=== PATIENT | male | born 1975 | race Caucasian/White ===

== ENCOUNTER 2017-01-10 12:59 | Emergency (ER) | payer OTHER ==
[2017-01-10 13:07] VITALS: TEMP 98.5; BMI 25.0
[2017-01-10] MEDS ORDERED: SODIUM CHLORIDE 1,000 ML IV STA (13:55)
[2017-01-10] MEDS ORDERED: diazePAM CARPU-JECT 10 MG/2 ML DISP.SYRIN IVPUSH ONE (13:58)
--- NOTE | 2017-01-10 14:03 | PDOC ---
History of Present Illness - General History Source: Patient - History of Present Illness Timing/Duration: other Severity: mild Associated Symptoms: reports: nausea/vomiting. denies: chest pain, cough, diaphoresis, fever/chills, headaches, seizure, shortness of breath, syncope, weakness <Tenisha Dykes - Last Filed: 01/10/17 15:17> <Alejandro Marcelo - Last Filed: 01/14/17 07:28> - General Chief Complaint: Tremors Stated Complaint: PCP SENT FOR ADMIN Time Seen by Provider: 01/10/17 13:50 Past History - Past Medical History Anemia: No Asthma: No Cardiac Disorders: No CVA: No COPD: No Diabetes: No GI Disorders: No Disorders: No HTN: Yes (ON MEDS) Hypercholesterolemia: No Kidney Stones: No Suicide Attempt (Hx): No (DENIES) Seizures: No Thyroid Disease: No - Surgical History Abdominal Surgery: No Appendectomy: Yes (at age 13) Cardiac Surgery: No Cholecystectomy: No Lung Surgery: No Neurologic Surgery: No Orthopedic Surgery: No - Reproductive History Testicular Surgery: No - Psycho/Social/Smoking Cessation Hx Anxiety: No Suicidal Ideation: No Smoking History: Current every day smoker Have you smoked in the past 12 months: Yes Number of Cigarettes Smoked Daily: 18 Information on smoking cessation initiated: No 'Breaking Loose' booklet given: 03/25/16 Hx Alcohol Use: Yes Drug/Substance Use Hx: Yes (COCAINE) Substance Use Type: Alcohol Hx Substance Use Treatment: No ([facility]) <Tenisha Dykes - Last Filed: 01/10/17 15:17> <Alejandro Marcelo - Last Filed: 01/14/17 07:28> - Past Medical History Allergies/Adverse Reactions: Allergies Allergy/AdvReac Type Severity Reaction Status Date / Time No Known Allergies Allergy Verified 01/10/17 13:04 Home Medications: Ambulatory Orders Amlodipine Besylate [Norvasc -] 10 mg PO DAILY 01/10/17 Losartan Potassium [Cozaar -] 100 mg PO DAILY 01/10/17 Review of Systems - Review of Systems Constitutional: No: Fever Respiratory: No: Cough, Shortness of Breath Cardiac (ROS): No: Chest Pain, Lightheadedness, Palpitations ABD/GI: Yes: Nausea. No: Vomiting Neurological: No: Headache, Dizziness <Tenisha Dykes - Last Filed: 01/10/17 15:17> *Physical Exam - Vital Signs Last Vital Signs Temp Pulse Resp BP Pulse Ox 98.5 F 117 H 18 116/60 98 01/10/17 13:04 01/10/17 13:04 01/10/17 13:04 01/10/17 13:04 01/10/17 13:04 - Physical Exam General Appearance: Yes: Appropriately Dressed. No: Apparent Distress HEENT: positive: Normal Voice Neck: positive: Supple Respiratory/Chest: positive: Lungs Clear, Normal Breath Sounds. negative: Respiratory Distress Cardiovascular: positive: S1, S2, Tachycardia Gastrointestinal/Abdominal: positive: Soft. negative: Tender Integumentary: positive: Dry, Warm Neurologic: positive: Fully Oriented, Alert, Normal Mood/Affect, Other (L hand tremor noted) <Tenisha Dykes - Last Filed: 01/10/17 15:17> - Vital Signs Last Vital Signs Temp Pulse Resp BP Pulse Ox 98.5 F 96 H 16 140/88 99 01/10/17 13:04 01/10/17 15:27 01/10/17 15:27 01/10/17 15:27 01/10/17 15:27 <Alejandro Marcelo - Last Filed: 01/14/17 07:28> ED Treatment Course - LABORATORY CBC & Chemistry Diagram: 01/10/17 14:20 01/10/17 14:20 <Tenisha Dykes - Last Filed: 01/10/17 15:17> - LABORATORY CBC & Chemistry Diagram: 01/10/17 14:20 01/10/17 14:20 - ADDITIONAL ORDERS Additional order review: 01/10/17 14:20 RBC 4.70 MCV 95.0 MCHC 34.9 RDW 12.5 MPV 7.5 Neutrophils % 71.0 Lymphocytes % 14.4 Monocytes % 13.4 H Eosinophils % 0.5 Basophils % 0.7 - Medications Given in the ED: ED Medications Discontinued Medications Generic Name Dose Route Start Last Admin Trade Name Freq PRN Reason Stop Dose Admin Diazepam 10 mg 01/10/17 13:58 01/10/17 14:21 Valium Injection - IVPUSH 01/10/17 13:59 10 mg ONCE ONE Administration Sodium Chloride 1,000 mls @ 1,000 mls/hr 01/10/17 13:55 01/10/17 14:21 Normal Saline - IV 01/10/17 14:54 1,000 mls/hr ASDIR STA Administration <Alejandro Marcelo - Last Filed: 01/14/17 07:28> Medical Decision Making - Medical Decision Making 01/10/17 14:01 41 yo M, h/o HTN, cocaine and ETOH abuse, s/p admission to [facility] detox [facility] 03/26, here requesting detox for ETOH. Last ingested ETOH 3 days ago and states he has not used cocaine in months. C/o nausea and L hand tremor, no vomiting, dizziness, seizures, CP, SOB, abd pain, f/c. No SI/HI See exam ETOH withdrawal Tachy in ED and c/o nausea and L hand tremor -valium -IVF -labs -admission to intpt vs transfer to inpt detox facility at [facility] 01/10/17 14:24 01/10/17 14:26 01/10/17 15:10 Utox + for marijuana. ETOH lvl <5. Rest of labs unremarkable. Valium and IVF in progress, will reassess 01/10/17 15:10 Case d/w staff at [facility], states once pt stable, can be transferred to facility 01/10/17 15:17 HR 96. Pt reports feeling better. Stable for discharge to [facility] w/ security assistant 01/10/17 15:18 <Tenisha Dykes - Last Filed: 01/10/17 15:17> - Medical Decision Making 01/14/17 07:28 The patient was seen and evaluated in conjunction with AJYRO Dykes under my direct supervision, ancillary studies were reviewed. I agree with the plan as outlined by JAYRO Dykes . <Alejandro Marcelo - Last Filed: 01/14/17 07:28> *DC/Admit/Observation/Transfer <Tenisha Dykes - Last Filed: 01/10/17 15:17> <Alejandro Marcelo - Last Filed: 01/14/17 07:28> Diagnosis at time of Disposition: Alcohol dependence with uncomplicated withdrawal - Discharge Dispostion Disposition: HOME Condition at time of disposition: Improved - Referrals Referrals: Steven Cordoba MD [Primary Care Provider] - - Patient Instructions Printed Discharge Instructions: DI for Alcohol Abuse Additional Instructions: You were discharged and transported to [facility]
[2017-01-10] MEDS ORDERED: diazePAM CARPU-JECT 10 MG/2 ML DISP.SYRIN ONE (14:13)
[2017-01-10 14:19] LABS: URINE APPEARANCE CLEAR; URINE BILIRUBIN NEGATIVE (NEGATIVE); URINE BLOOD NEGATIVE (NEGATIVE); URINE COLOR YELLOW; URINE GLUCOSE (UA) NEGATIVE (NEGATIVE); URINE KETONE TRACE (NEGATIVE); URINE LEUK ESTERASE NEGATIVE (NEGATIVE); URINE NITRITE NEGATIVE (NEGATIVE); URINE PROTEIN NEGATIVE (NEGATIVE); URINE UROBILINOGEN NEGATIVE mg/dL (0.2-1.0)
[2017-01-10 14:27] LABS: BASOPHIL 0.7 % (0-2.0); EOSINOPHIL 0.5 % (0-4.5); MCH 33.2 pg (25.7-33.7); MCHC 34.9 g/dl (32.0-35.9); MEAN PLT VOLUME 7.5 fl (7.5-11.1); PLATELET COUNT 238 K/MM3 (134-434); RDW 12.5 % (11.9-15.9); WHITE BLOOD COUNT 6.4 K/mm3 (4.0-10.0)
[2017-01-10 14:53] LABS: ALBUMIN 4.2 g/dl (3.4-5.0); ANION GAP 9 (8-16); BILIRUBIN,TOTAL 0.8 mg/dL (0.2-1.0); CALCIUM 9.2 mg/dL (8.5-10.1); CO2 26 mmol/L (21-32); CREATININE 0.9 mg/dL (0.7-1.3); GLUCOSE,RANDOM 155 mg/dL (74-106); SGOT/AST 18 U/L (15-37); SGPT/ALT 24 U/L (12-78); TOT PROT 7.5 g/dl (6.4-8.2)
[2017-01-10 14:56] LABS: ALK PHOS 96 U/L (45-117); CPK 77 IU/L (39-308); TROPONIN I < 0.02 ng/ml (0.00-0.05)
[2017-01-10 14:59] LABS: URINE MARIJUANA THC POSITIVE ng/ml (CUTOFF=50)
[2017-01-10 15:27] VITALS: BP 140/88; PULSE 96
--- NOTE | 2017-01-11 13:51 | EKG ---
Test Reason : Blood Pressure : / mmHG Vent. Rate : 099 BPM Atrial Rate : 099 BPM P-R Int : 148 ms QRS Dur : 078 ms QT Int : 340 ms P-R-T Axes : 054 030 042 degrees QTc Int : 436 ms NORMAL SINUS RHYTHM POSSIBLE LEFT ATRIAL ENLARGEMENT NONDIAGNOSTIC Q WAVES IN II III aVF POOR R WAVE PROGRESSION I V1-V3,MAY BE DUE TO TECHNICA LANR/OR POSITIONAL REASONS, CANNOT EXCLUDE ANTEROSEPTAL WY ABNORMAL ECG NO PREVIOUS ECGS AVAILABLE CLINICAL CORRELATION AND REPEAT EKG INDICATED Confirmed by JOSH MENEZES MD ([id number]) on 01/11/2017 1:50:52 PM Referred By: Confirmed By:JOSH MENEZES MD
== END 2017-01-10 15:28 | disposition home or self-care (01) ==
LOC: JER 12:59
PROC: 3E033NZ Introduction of Analgesics, Hypnotics, Sedatives into Peripheral Vein, Percutaneous Approach (ICD-10-PCS; principal; 2017-01-10)
DX: F10.230 Alcohol dependence with withdrawal, uncomplicated (principal); F17.210 Nicotine dependence, cigarettes, uncomplicated
CPT/HCPCS: 36415; 80053; 80307; 81003; 83690; 84484; 85025; 93005; 93010; 99283-25

== ENCOUNTER 2017-01-10 16:08 | Inpatient (IN) | payer OTHER ==
[2017-01-10 16:50] VITALS: BMI 39.1
--- NOTE | 2017-01-10 19:36 | HP ---
CIWA Score - CIWA Score Nausea/Vomitin Muscle Tremors: 3 Anxiety: 3 Agitation: 2 Paroxysmal Sweats: 1-Minimal Palms Moist Orientation: 0-Oriented Tacttile Disturbances: 2-Mild Itch/Numbness/Burn Auditory Disturbances: 2-Mild Harshness/Frighten Visual Disturbances: 2-Mild Sensitivity Headache: 2-Mild CIWA-Ar Total Score: 20 Admission ROS BHS - HPI Chief Complaint: refer from [facility] for detox from alcohol Allergies/Adverse Reactions: Allergies Allergy/AdvReac Type Severity Reaction Status Date / Time No Known Allergies Allergy Verified 01/10/17 13:04 History of Present Illness: this 41 years old male with alcohol and marijuana dependence,refer for alcohol detox,last detox from 03/25/16 to 03/28/16 [facility] alcohol related seizure admitted in [facility] on 01/01/17 history of hypertension nicotine dependence no significant period of sobriety Exam Limitations: No Limitations - Ebola screening Have you traveled outside of the country in the last 21 days: No Have you had contact with anyone from an Ebola affected area: No Have you been sick,other than usual withdrawal symptoms: No Do you have a fever: No - Review of Systems Constitutional: Loss of Appetite, Malaise, Night Sweats, Changes in sleep, Weakness EENT: reports: Nose Congestion Respiratory: reports: No Symptoms reported Cardiac: reports: No Symptoms Reported GI: reports: Nausea, Poor Appetite, Vomiting : reports: No Symptoms Reported Musculoskeletal: reports: Back Pain, Muscle Pain Integumentary: reports: Dryness Neuro: reports: Headache, Tremors Endocrine: reports: No Symptoms Reported Hematology: reports: No Symptoms Reported Psychiatric: reports: No Sypmtoms Reported Other Systems: Reviewed and Negative Patient History - Patient Medical History Hx Anemia: No Hx Asthma: No Hx Chronic Obstructive Pulmonary Disease (COPD): No Hx Cardiac Disorders: No Hx Hypertension: Yes (ON MEDS) Hx Hypercholesterolemia: No HX Cerebrovascular Accident: No Hx Seizures: Yes (alcohol related seizure last 01/01/17) Hx Dementia: No Hx Diabetes: No Hx Gastrointestinal Disorders: No Hx Genitourinary Disorders: No Hx Sexually Transmitted Disorders: No (DENIES) Hx Renal Disease (ESRD): No Hx Thyroid Disease: No Hx Human Immunodeficiency Virus (HIV): No (NEGATIVE HX last 2015) Hx Hepatitis C: No Hx Depression: No Hx Suicide Attempt: No (DENIES) Hx Bipolar Disorder: No Hx Schizophrenia: No Other Medical History: no suicidal,no homicidal - Patient Surgical History Past Surgical History: Yes Hx Neurologic Surgery: No Hx Cataract Extraction: No Hx Cardiac Surgery: No Hx Lung Surgery: No Hx Breast Surgery: No Hx Breast Biopsy: No Hx Abdominal Surgery: No Hx Appendectomy: Yes (at age 13) Hx Cholecystectomy: No Hx Genitourinary Surgery: No Hx Section: No Hx Orthopedic Surgery: No Anesthesia Reaction: No - PPD History Previous Implant?: Yes Implanted On Prior [facility] Admission?: Yes Date: 03/27/16 Results: 0 mm PPD to be Administered?: No - Smoking Cessation Smoking history: Current every day smoker Have you smoked in the past 12 months: Yes Aproximately how many cigarettes per day: 20 Cigars Per Day: 0 Hx Chewing Tobacco Use: No Initiated information on smoking cessation: Yes 'Breaking Loose' booklet given: 01/10/17 - Substance & Tx. History Hx Alcohol Use: Yes Hx Substance Use: No Substance Use Type: Alcohol Hx Substance Use Treatment: Yes ([facility] 03/25/16 to 03/28/16) - Substances Abused Alcohol Route: Oral Frequency: Daily Amount used: 6 packs of 24 ozs of beer Age of first use: 17 Date of Last Use: 01/09/17 Family Disease History - Family Disease History Family Disease History: Other: Mother (dvt leg and pulmonary embolism) Admission Physical Exam S - Vital Signs Vital Signs: Vital Signs - 24 hr 01/10/17 16:47 Temperature 97.9 F Pulse Rate 93 H Respiratory 18 Rate Blood Pressure 160/110 - Physical General Appearance: Yes: Moderate Distress, Tremorous, Irritable, Sweating, Anxious HEENTM: Yes: Normal ENT Inspection, VICTOR HUGO, Pharynx Normal Respiratory: Yes: Lungs Clear, Normal Breath Sounds, No Respiratory Distress Neck: Yes: Within Normal Limits Breast: Yes: Within Normal Limits Cardiology: Yes: Within Normal Limits, Regular Rhythm, Regular Rate, S1, S2 Abdominal: Yes: Within Normal Limits, Normal Bowel Sounds, Non Tender, Flat, Soft Genitourinary: Yes: Within Normal Limits Musculoskeletal: Yes: full range of Motion, Back pain, Muscle Pain Extremities: Yes: Tremors Neurological: Yes: presser first II-XII NML intact, Alert, Motor Strength 5/5 Integumentary: Yes: Within Normal Limits, Dry Lymphatic: Yes: Within Normal Limits - Diagnostic (1) Alcohol dependence with uncomplicated withdrawal Current Visit: No Status: Acute (2) HTN (hypertension) Current Visit: No Status: Acute Qualifiers: Hypertension type: essential hypertension Qualified Code(s): I10 - Essential (primary) hypertension (3) Nicotine dependence Current Visit: Yes Status: Acute (4) Alcohol related seizure Current Visit: Yes Status: Acute Cleared for Admission [facility] - Detox or Rehab [facility] Level of Care: Medically Managed Detox Regimen/Protocol: Librium [facility] Breath Alcohol Content Breath Alcohol Content: 0 Urine Drug Screen - Results Urine Drug Screen Results: BZO-Benzodiazepines
[2017-01-10] MEDS ORDERED: MENTHOL/PHENOL 1 EACH UD MM PRN (19:50)
[2017-01-10] MEDS ORDERED: MAGNESIUM HYDROX 2400MG/30ML ORAL SUSPENSION 30 ML CUP PO PRN (19:50)
[2017-01-10] MEDS ORDERED: IBUPROFEN 400 MG TABLET (FP) PO PRN (19:50)
[2017-01-10] MEDS ORDERED: chlordiazePOXIDE HCL 25 MG CAPSULE PO ONE (19:50)
[2017-01-10] MEDS ORDERED: chlordiazePOXIDE HCL 25 MG CAPSULE PO PRN (19:50)
[2017-01-10] MEDS ORDERED: P-EPHED 60MG/TRIPROLIDI 2.5MG TABLET PO PRN (19:50)
[2017-01-10] MEDS ORDERED: LOPERAMIDE HCL 2 MG CAPSULE PO PRN (19:50)
[2017-01-10] MEDS ORDERED: ACETAMINOPHEN 325 MG TABLET (FP) PO PRN (19:50)
[2017-01-10] MEDS ORDERED: guaiFENesin/D-METHORPHAN HB 10 ML UNIT-DOSE CUPS PO PRN (19:50)
[2017-01-10] MEDS ORDERED: MAGNESIUM CITRATE 300 ML BOTTLE PO PRN (19:50)
[2017-01-10] MEDS ORDERED: MAG HYDROX/AL HYDROX/SIMETH 30 ML UNIT-DOSE CUP PO PRN (19:50)
[2017-01-10] MEDS: diphenhydrAMINE HCL 50 MG CAPSULE PO PRN (22:45)
[2017-01-10] MEDS: chlordiazePOXIDE HCL 25 MG CAPSULE PO SCH (22:45)
[2017-01-10] MEDS: THIAMINE HCL 100 MG TABLET (FP) PO SCH (22:47)
[2017-01-10] MEDS: NICOTINE 21 MG/24 HOURS TOPICAL PATCH TD SCH (22:47)
[2017-01-11] MEDS: chlordiazePOXIDE HCL 25 MG CAPSULE PO SCH ×4 (06:02→22:36)
--- NOTE | 2017-01-11 10:22 | PN ---
S CIWA - CIWA Score Nausea/Vomitin Muscle Tremors: 4-Moderate,w/Arms Extend Anxiety: 4-Mod. Anxious/Guarded Agitation: 4-Moderately Restless Paroxysmal Sweats: 3 Orientation: 0-Oriented Tacttile Disturbances: 1-Very Mild Itch/Numbness Auditory Disturbances: 0-None Visual Disturbances: 0-None Headache: 1-Very Mild CIWA-Ar Total Score: 20 BHS Progress Note (SOAP) Subjective: nausea, sweats, interrupted sleep, anxiety, tremors Objective: 01/11/17 10:21 Vital Signs - 24 hr 01/10/17 01/10/17 01/11/17 16:47 23:20 00:30 Temperature 97.9 F 98.2 F Pulse Rate 93 H 92 H Respiratory 18 20 18 Rate Blood Pressure 160/110 146/110 01/11/17 01/11/17 03:30 06:22 Temperature 97.3 F L Pulse Rate 70 Respiratory 18 18 Rate Blood Pressure 146/90 labs pending, hypertensive and tachycardic Assessment: 01/11/17 10:22 withdrawawl sx, essentila HTN Plan: cont detox, fluids for hydration, restart bp meds, libirum prn
[2017-01-11] MEDS ORDERED: cloNIDine HCL 0.1 MG TABLET PO ONE (10:24)
[2017-01-11 10:37] LABS: MCH 32.6 pg (25.7-33.7); MCHC 33.4 g/dl (32.0-35.9); MEAN CELL VOLUME 97.4 fl (80-96); PLATELET COUNT 196 K/MM3 (134-434); RDW 12.5 % (11.9-15.9); WHITE BLOOD COUNT 4.6 K/mm3 (4.0-10.0)
[2017-01-11] MEDS: LOSARTAN POTASSIUM 50 MG TABLET (FP) PO SCH (10:51)
[2017-01-11] MEDS: amLODIPine BESYLATE 10 MG TABLET (FP) PO SCH (10:51)
[2017-01-11] MEDS: PRENATAL VITAMINS W/ FOLIC ACID TABLET (FP) PO SCH (10:51)
[2017-01-11] MEDS: NICOTINE 21 MG/24 HOURS TOPICAL PATCH TD SCH (10:51)
[2017-01-11 11:09] LABS: ALBUMIN 3.6 g/dl (3.4-5.0); ALK PHOS 79 U/L (45-117); ANION GAP 11 (8-16); BILIRUBIN,TOTAL 0.8 mg/dL (0.2-1.0); CALCIUM 8.9 mg/dL (8.5-10.1); CO2 26 mmol/L (21-32); CREATININE 0.9 mg/dL (0.7-1.3); GLUCOSE,RANDOM 80 mg/dL (74-106); SGOT/AST 17 U/L (15-37); SGPT/ALT 21 U/L (12-78); TOT PROT 6.6 g/dl (6.4-8.2)
[2017-01-11] MEDS ORDERED: chlordiazePOXIDE HCL 25 MG CAPSULE PO ONE (13:00)
--- NOTE | 2017-01-11 13:55 | EKG ---
Test Reason : Blood Pressure : / mmHG Vent. Rate : 069 BPM Atrial Rate : 069 BPM P-R Int : 134 ms QRS Dur : 090 ms QT Int : 392 ms P-R-T Axes : 017 033 017 degrees QTc Int : 420 ms NORMAL SINUS RHYTHM NORMAL ECG WHEN COMPARED WITH ECG OF 10-JAN-2017 14:06, NO SIGNIFICANT CHANGE WAS FOUND Confirmed by JOSH MENEZES MD ([id number]) on 01/11/2017 1:55:00 PM Referred By: Confirmed By:JOSH MENEZES MD
[2017-01-11] MEDS: THIAMINE HCL 100 MG TABLET (FP) PO SCH (22:36)
[2017-01-11] MEDS: diphenhydrAMINE HCL 50 MG CAPSULE PO PRN (22:37)
[2017-01-12] MEDS: chlordiazePOXIDE HCL 25 MG CAPSULE PO SCH ×3 (05:36→17:32)
[2017-01-12] MEDS: NICOTINE 21 MG/24 HOURS TOPICAL PATCH TD SCH (10:41)
[2017-01-12] MEDS: PRENATAL VITAMINS W/ FOLIC ACID TABLET (FP) PO SCH (10:41)
[2017-01-12] MEDS: amLODIPine BESYLATE 10 MG TABLET (FP) PO SCH (10:41)
[2017-01-12] MEDS: LOSARTAN POTASSIUM 50 MG TABLET (FP) PO SCH (10:41)
--- NOTE | 2017-01-12 12:12 | PN ---
S CIWA - CIWA Score Nausea/Vomitin Muscle Tremors: 4-Moderate,w/Arms Extend Anxiety: 4-Mod. Anxious/Guarded Agitation: 4-Moderately Restless Paroxysmal Sweats: 3 Orientation: 0-Oriented Tacttile Disturbances: 1-Very Mild Itch/Numbness Auditory Disturbances: 0-None Visual Disturbances: 0-None Headache: 1-Very Mild CIWA-Ar Total Score: 20 BHS Progress Note (SOAP) Subjective: nausea. sweats, interrupted sleep, anxiety, tremors Objective: 01/12/17 12:11 Vital Signs - 8 hr 01/12/17 06:36 Temperature 97 F L Pulse Rate 98 H Respiratory 20 Rate Blood Pressure 143/91 Laboratory Tests 01/11/17 01/11/17 01/11/17 07:00 07:00 07:00 WBC 4.6 RBC 4.49 Hgb 14.6 Hct 43.8 MCV 97.4 H MCH 32.6 MCHC 33.4 RDW 12.5 Plt Count 196 MPV 8.0 Sodium 141 Potassium 4.0 Chloride 104 Carbon Dioxide 26 Anion Gap 11 BUN 12 D Creatinine 0.9 Creat Clearance w eGFR > 60 Random Glucose 80 D Calcium 8.9 Total Bilirubin 0.8 AST 17 ALT 21 Alkaline Phosphatase 79 Total Protein 6.6 Albumin 3.6 RPR Titer Nonreactive u/a pending Assessment: 01/12/17 12:11 withdrawal sx Plan: cont detox, check u/a fluids
[2017-01-12 18:42] LABS: URINE APPEARANCE SLCLOUDY; URINE BILIRUBIN NEGATIVE (NEGATIVE); URINE BLOOD NEGATIVE (NEGATIVE); URINE COLOR YELLOW; URINE GLUCOSE (UA) NEGATIVE (NEGATIVE); URINE KETONE NEGATIVE (NEGATIVE); URINE LEUK ESTERASE TRACE (NEGATIVE); URINE NITRITE NEGATIVE (NEGATIVE); URINE PROTEIN NEGATIVE (NEGATIVE); URINE UROBILINOGEN NEGATIVE mg/dL (0.2-1.0)
[2017-01-12 18:47] LABS: URINE BACTERIA RARE /hpf (NONE SEEN); URINE MUCUS RARE; URINE RBC <1 /hpf (0-3); URINE WBC 2 /hpf (3-5)
[2017-01-12] MEDS: THIAMINE HCL 100 MG TABLET (FP) PO SCH (22:16)
[2017-01-12] MEDS: chlordiazePOXIDE 5 MG CAPSULE PO SCH (22:16)
[2017-01-12] MEDS: diphenhydrAMINE HCL 50 MG CAPSULE PO PRN (22:17)
[2017-01-13] MEDS: chlordiazePOXIDE 5 MG CAPSULE PO SCH ×3 (05:53→17:19)
[2017-01-13] MEDS: PRENATAL VITAMINS W/ FOLIC ACID TABLET (FP) PO SCH (10:20)
[2017-01-13] MEDS: amLODIPine BESYLATE 10 MG TABLET (FP) PO SCH (10:20)
[2017-01-13] MEDS: LOSARTAN POTASSIUM 50 MG TABLET (FP) PO SCH (10:20)
[2017-01-13] MEDS: NICOTINE 21 MG/24 HOURS TOPICAL PATCH TD SCH (10:21)
--- NOTE | 2017-01-13 11:55 | PN ---
BHS Progress Note (SOAP) Subjective: feeling fine anxiety very little sweats Objective: 01/13/17 11:55 Vital Signs Temperature 97.7 F 01/13/17 11:11 Pulse Rate 92 H 01/13/17 11:11 Respiratory Rate 20 01/13/17 11:11 Blood Pressure 145/100 01/13/17 11:11 O2 Sat by Pulse Oximetry (%) awake/alert ambulating no acute distress Assessment: 01/13/17 11:55 mild withdrawal sx Plan: continue detox increase fluids d/c in am
[2017-01-13] MEDS ORDERED: cloNIDine HCL 0.1 MG TABLET PO ONE (16:15)
[2017-01-13] MEDS: THIAMINE HCL 100 MG TABLET (FP) PO SCH (22:06)
[2017-01-13] MEDS: chlordiazePOXIDE HCL 10 MG CAPSULE PO SCH (22:06)
[2017-01-13] MEDS: diphenhydrAMINE HCL 50 MG CAPSULE PO PRN (23:18)
[2017-01-14] MEDS: chlordiazePOXIDE HCL 10 MG CAPSULE PO SCH (06:19)
[2017-01-14] MEDS: LOSARTAN POTASSIUM 50 MG TABLET (FP) PO SCH (09:18)
[2017-01-14] MEDS: PRENATAL VITAMINS W/ FOLIC ACID TABLET (FP) PO SCH (09:18)
[2017-01-14] MEDS: amLODIPine BESYLATE 10 MG TABLET (FP) PO SCH (09:18)
[2017-01-14] MEDS: NICOTINE 21 MG/24 HOURS TOPICAL PATCH TD SCH (09:19)
--- NOTE | 2017-01-14 09:25 | DS ---
[facility] Detox Discharge Summary Admission Date: 01/10/17 Discharge Date: 01/14/17 - History Present History: Alcohol Dependence Pertinent Past History: nicotine dependence, HTN, anxiety, depression, insomnia - Physical Exam Results Vital Signs: Vital Signs Temperature 97.8 F 01/14/17 05:55 Pulse Rate 66 01/14/17 05:55 Respiratory Rate 18 01/14/17 05:55 Blood Pressure 131/76 01/14/17 05:55 O2 Sat by Pulse Oximetry (%) Laboratory Tests 01/11/17 01/11/17 01/11/17 07:00 07:00 07:00 WBC 4.6 RBC 4.49 Hgb 14.6 Hct 43.8 MCV 97.4 H MCH 32.6 MCHC 33.4 RDW 12.5 Plt Count 196 MPV 8.0 Sodium 141 Potassium 4.0 Chloride 104 Carbon Dioxide 26 Anion Gap 11 BUN 12 D Creatinine 0.9 Creat Clearance w eGFR > 60 Random Glucose 80 D Calcium 8.9 Total Bilirubin 0.8 AST 17 ALT 21 Alkaline Phosphatase 79 Total Protein 6.6 Albumin 3.6 Urine Color Urine Appearance Urine pH Ur Specific Val[place] Urine Protein Urine Glucose (UA) Urine Ketones Urine Blood Urine Nitrite Urine Bilirubin Urine Urobilinogen Ur Leukocyte Esterase Urine RBC Urine WBC Ur Epithelial Cells Urine Bacteria Urine Mucus RPR Titer Nonreactive 01/12/17 14:30 WBC RBC Hgb Hct MCV MCH MCHC RDW Plt Count MPV Sodium Potassium Chloride Carbon Dioxide Anion Gap BUN Creatinine Creat Clearance w eGFR Random Glucose Calcium Total Bilirubin AST ALT Alkaline Phosphatase Total Protein Albumin Urine Color Yellow Urine Appearance Slcloudy Urine pH 6.0 Ur Specific Valdez 1.015 Urine Protein Negative Urine Glucose (UA) Negative Urine Ketones Negative Urine Blood Negative Urine Nitrite Negative Urine Bilirubin Negative Urine Urobilinogen Negative Ur Leukocyte Esterase Trace Urine RBC <1 Urine WBC 2 Ur Epithelial Cells Rare Urine Bacteria Rare Urine Mucus Rare RPR Titer Pertinent Admission Physical Exam Findings: withdrawal sx - Treatment Hospital Course: Detox Protocol Followed, Detoxed Safely, Responded well, Discharged Condition Good, Rehab Referral Accepted Patient has Accepted a Rehab Referral to: Yes - Medication Discharge Medications: Ambulatory Orders Amlodipine Besylate [Norvasc -] 10 mg PO DAILY 01/10/17 Losartan Potassium [Cozaar -] 100 mg PO DAILY 01/10/17 - Diagnosis (1) Alcohol related seizure Current Visit: Yes Status: Resolved (2) Nicotine dependence Current Visit: Yes Status: Chronic (3) Alcohol dependence with uncomplicated withdrawal Current Visit: Yes Status: Acute (4) HTN (hypertension) Current Visit: Yes Status: Chronic Qualifiers: Hypertension type: essential hypertension Qualified Code(s): I10 - Essential (primary) hypertension - AMA Did Patient Leave Against Medical Advice: No
[2017-01-14 10:33] VITALS: BP 142/100; PULSE 110; TEMP 97.5
== END 2017-01-14 09:48 | disposition home or self-care (01) | DRG 775 ==
LOC: YASAS 16:08 → Y6N 21:37
PROVIDERS: ADMIT Internal Medicine Addiction Medicine; ATTEND Internal Medicine
PROC: HZ2ZZZZ Detoxification Services for Substance Abuse Treatment (ICD-10-PCS; principal; 2017-01-10)
DX: F10.230 Alcohol dependence with withdrawal, uncomplicated (principal); F17.210 Nicotine dependence, cigarettes, uncomplicated; R00.0 Tachycardia, unspecified; I10 Essential (primary) hypertension; Z86.69 Personal history of other diseases of the nervous system and sense organs
CPT/HCPCS: 36415; 80053; 81003; 81015; 85027; 86593; 93005; 93010

== ENCOUNTER → 2017-01-31 | Emergency (ER) | payer OTHER ==
[~2017-01-31] MED LIST: LOSARTAN POTASSIUM 25 MG TABLET ONE; LOSARTAN POTASSIUM 50 MG TABLET (FP) PO SCH; amLODIPine BESYLATE 5 MG TABLET (FP) ONE; amLODIPine BESYLATE 5 MG TABLET (FP) PO ONE
[2017-01-31 02:18] VITALS: BMI 28.1
--- NOTE | 2017-01-31 04:52 | PDOC ---
History of Present Illness - General History Source: Patient Exam Limitations: No Limitations - History of Present Illness Initial Comments: 01/31/17 05:03 The patient is a 41 year old male, with a significant past medical history of hypertension, and alcohol abuse, who presents to the emergency department with elevated blood pressure. The patient reports he left detox at [facility] on Thursday, December 14, 2016 and recently revisited [facility] detox earlier today prior to arrival at the emergency room but could not be admitted to [facility] due to his high blood pressure and recent admission on December 14. The patient reports he is feeling anxious and has shakes s/p alcohol withdrawal. He denies any recent chest pain or shortness of breath. He denies any recent fevers, chills, headache or dizziness. Allergies: NKA PCP: Dr. Steven Cordoba <Iain Vang - Last Filed: 01/31/17 05:09> <Jessica Rebolledo - Last Filed: 02/01/17 00:12> - General Chief Complaint: Blood Pressure Problem Stated Complaint: BLOOD PRESSURE PROBLEM Time Seen by Provider: 01/31/17 04:08 Past History <Iain Vang - Last Filed: 01/31/17 05:09> - Past Medical History Anemia: No Asthma: No Cardiac Disorders: No CVA: No COPD: No Dementia: No Diabetes: No GI Disorders: No Disorders: No HTN: Yes (ON MEDS) Hypercholesterolemia: No Kidney Stones: No Seizures: Yes (alcohol related seizure last 01/01/17) Thyroid Disease: No - Surgical History Abdominal Surgery: No Appendectomy: Yes (at age 13) Cardiac Surgery: No Cholecystectomy: No Lung Surgery: No Neurologic Surgery: No Orthopedic Surgery: No - Reproductive History Testicular Surgery: No - Suicide/Smoking/Psychosocial Hx Smoking History: Current every day smoker Have you smoked in the past 12 months: Yes Number of Cigarettes Smoked Daily: 20 Cigars Per Day: 0 Information on smoking cessation initiated: No 'Breaking Loose' booklet given: 01/10/17 Hx Alcohol Use: Yes Drug/Substance Use Hx: No Substance Use Type: Alcohol Hx Substance Use Treatment: Yes ([facility] 03/25/16 to 03/28/16) <Jessica Rebolledo - Last Filed: 02/01/17 00:12> - Past Medical History Allergies/Adverse Reactions: Allergies Allergy/AdvReac Type Severity Reaction Status Date / Time No Known Allergies Allergy Verified 01/31/17 02:15 Home Medications: Ambulatory Orders Amlodipine Besylate [Norvasc -] 10 mg PO DAILY 01/10/17 Losartan Potassium [Cozaar -] 100 mg PO DAILY 01/10/17 Review of Systems - Review of Systems Comments:: 01/31/17 05:04 GENERAL/CONSTITUTIONAL: No fever or chills. No weakness. HEAD, EYES, EARS, NOSE AND THROAT: No change in vision. No ear pain or discharge. No sore throat. CARDIOVASCULAR: No chest pain or shortness of breath. RESPIRATORY: No cough, wheezing, or hemoptysis. GASTROINTESTINAL: No nausea, vomiting, diarrhea or constipation. GENITOURINARY: No dysuria, frequency, or change in urination. MUSCULOSKELETAL: No joint or muscle swelling or pain. No neck or back pain. SKIN: No rash NEUROLOGIC: No headache, vertigo, loss of consciousness, or change in strength/ sensation. ENDOCRINE: No increased thirst. No abnormal weight change. HEMATOLOGIC/LYMPHATIC: No anemia, easy bleeding, or history of blood clots. ALLERGIC/IMMUNOLOGIC: No hives or skin allergy. <Iain Vang - Last Filed: 01/31/17 05:09> *Physical Exam - Vital Signs Last Vital Signs Temp Pulse Resp BP Pulse Ox 97.7 F 92 H 18 180/129 99 01/31/17 02:10 01/31/17 02:10 01/31/17 02:10 01/31/17 02:10 01/31/17 02:10 - Physical Exam Comments: 01/31/17 05:05 GENERAL: Awake, alert, and fully oriented, in no acute distress HEAD: No signs of trauma EYES: PERRLA, EOMI, sclera anicteric, conjunctiva clear ENT: Auricles normal inspection, hearing grossly normal, nares patent, oropharynx clear without exudates. Moist mucosa NECK: Normal ROM, supple, no lymphadenopathy, JVD, or masses LUNGS: Breath sounds equal, clear to auscultation bilaterally. No wheezes, and no crackles HEART: Regular rate and rhythm, normal S1 and S2, no murmurs, rubs or gallops ABDOMEN: Soft, nontender, normoactive bowel sounds. No guarding, no rebound. No masses EXTREMITIES: Normal range of motion, no edema. No clubbing or cyanosis. No cords, erythema, or tenderness NEUROLOGICAL: Cranial nerves II through XII grossly intact. Normal speech, normal gait SKIN: Warm, Dry, normal turgor, no rashes or lesions noted. <Iain Vang - Last Filed: 01/31/17 05:09> - Vital Signs Last Vital Signs Temp Pulse Resp BP Pulse Ox 97.7 F 92 H 18 180/129 99 01/31/17 02:10 01/31/17 02:10 01/31/17 02:10 01/31/17 02:10 01/31/17 02:10 <Jessica Rebolledo - Last Filed: 02/01/17 00:12> ED Treatment Course - LABORATORY CBC & Chemistry Diagram: 01/31/17 06:36 01/31/17 06:36 <Jessica Rebolledo - Last Filed: 02/01/17 00:12> Medical Decision Making - Medical Decision Making 01/31/17 05:39 Pt is an alcoholic. He just got out of detox on the 6th of this month, and he is now drunk and his BP is elevated. He and his mom went to [facility] detox, and they refused his admission, as he was released withing the past couple weeks. Pt has HTN that was incidentally found today. Pt admits that he is noncompliant with his BP meds. Pt will be given a dose of his BP meds. 01/31/17 05:45 Pt will have basic labs and cardiac labs and EKG done. He will be signed out to the day team. Discuss with PMD Adalid, if pt requires admission. <Jessica Rebolledo - Last Filed: 02/01/17 00:12> *DC/Admit/Observation/Transfer - Attestations Scribe Attestion: 01/31/17 05:09 Documentation prepared by Iain Vang, acting as medical interpreter for Jessica Rebolledo MD. <Iain Vang - Last Filed: 01/31/17 05:09> <Jessica Rebolledo - Last Filed: 02/01/17 00:12> Diagnosis at time of Disposition: HTN (hypertension) - Discharge Dispostion Disposition: ELOPED - Referrals Referrals: Steven Cordoba MD [Primary Care Provider] -
[2017-01-31 06:41] LABS: BASOPHIL 1.1 % (0-2.0); EOSINOPHIL 0.4 % (0-4.5); MCH 33.5 pg (25.7-33.7); MCHC 34.9 g/dl (32.0-35.9); MEAN CELL VOLUME 96.2 fl (80-96); MEAN PLT VOLUME 7.2 fl (7.5-11.1); NEUTROPHILS 65.7 % (42.8-82.8); PLATELET COUNT 259 K/MM3 (134-434); RDW 12.8 % (11.9-15.9)
[2017-01-31 07:04] VITALS: TEMP 97.6
[2017-01-31 07:13] LABS: ALBUMIN 3.7 g/dl (3.4-5.0); ANION GAP 7 (8-16); BILIRUBIN,TOTAL 0.2 mg/dL (0.2-1.0); CALCIUM 7.9 mg/dL (8.5-10.1); CO2 28 mmol/L (21-32); CREATININE 0.8 mg/dL (0.7-1.3); GLUCOSE,RANDOM 97 mg/dL (74-106); SGOT/AST 14 U/L (15-37); SGPT/ALT 19 U/L (12-78); TOT PROT 6.7 g/dl (6.4-8.2)
[2017-01-31 07:15] LABS: ALK PHOS 79 U/L (45-117); CPK 120 IU/L (39-308); TROPONIN I < 0.02 ng/ml (0.00-0.05)
[2017-01-31 08:57] VITALS: BP 146/95; PULSE 89
--- NOTE | 2017-01-31 09:44 | EKG ---
Test Reason : Blood Pressure : / mmHG Vent. Rate : 077 BPM Atrial Rate : 077 BPM P-R Int : 158 ms QRS Dur : 092 ms QT Int : 392 ms P-R-T Axes : 064 047 030 degrees QTc Int : 443 ms POOR DATA QUALITY, INTERPRETATION MAY BE ADVERSELY AFFECTED NORMAL SINUS RHYTHM NORMAL ECG WHEN COMPARED WITH ECG OF 10-JAN-2017 21:18, NO SIGNIFICANT CHANGE WAS FOUND Confirmed by MD PRESTON, JAZZY ([id number]) on 01/31/2017 9:44:32 AM Referred By: Confirmed By:JAZZY JOHNSTON MD
--- NOTE | 2017-01-31 13:19 | PDOC ---
*Physical Exam - Vital Signs Last Vital Signs Temp Pulse Resp BP Pulse Ox 97.6 F 89 16 146/95 98 01/31/17 07:32 01/31/17 08:56 01/31/17 08:56 01/31/17 08:56 01/31/17 08:56 ED Treatment Course - LABORATORY CBC & Chemistry Diagram: 01/31/17 06:36 01/31/17 06:36 - ADDITIONAL ORDERS Additional order review: Laboratory Results 01/31/17 06:36 Sodium 142 Potassium 4.0 Chloride 107 Carbon Dioxide 28 Anion Gap 7 L BUN 10 Creatinine 0.8 Creat Clearance w eGFR > 60 Random Glucose 97 D Calcium 7.9 L Total Bilirubin 0.2 D AST 14 L ALT 19 Alkaline Phosphatase 79 Creatine Kinase 120 Troponin I < 0.02 Total Protein 6.7 Albumin 3.7 01/31/17 06:36 RBC 4.19 MCV 96.2 H MCHC 34.9 RDW 12.8 MPV 7.2 L Neutrophils % 65.7 Lymphocytes % 25.0 D Monocytes % 7.8 Eosinophils % 0.4 Basophils % 1.1 - Medications Given in the ED: ED Medications Discontinued Medications Generic Name Dose Route Start Last Admin Trade Name Freq PRN Reason Stop Dose Admin Amlodipine Besylate 5 mg 01/31/17 04:50 01/31/17 05:29 Norvasc - PO 01/31/17 04:51 5 mg ONCE ONE Administration Medical Decision Making - Medical Decision Making 01/31/17 13:18 41 yo male with h/o etoh abuse, hypertension not compliant with meds. here with c/o withdrawal symptoms. awaiting repeat bp and labs on my signout from dr bhat. labs unremarkable. bp improved after give home meds. pt eloped from ED while awaiting reassessment. *DC/Admit/Observation/Transfer Diagnosis at time of Disposition: HTN (hypertension) - Discharge Dispostion Disposition: ELOPED - Referrals Referrals: Steven Cordoba MD [Primary Care Provider] - - Patient Instructions - Post Discharge Activity
== END | disposition left against medical advice (07) ==
LOC: JER 02:00
DX: I10 Essential (primary) hypertension (principal); F10.10 Alcohol abuse, uncomplicated; G40.509 Epileptic seizures related to external causes, not intractable, without status epilepticus; Z91.14 Patient's other noncompliance with medication regimen
CPT/HCPCS: 36415; 80053; 84484; 85025; 93005; 93010; 99282-25

== ENCOUNTER 2017-02-03 18:01 | Emergency (ER) | payer OTHER ==
[2017-02-03 18:43] VITALS: BP 146/98; PULSE 119; TEMP 98.7; BMI 28.1
--- NOTE | 2017-02-03 20:32 | PDOC ---
History of Present Illness - General Chief Complaint: Alcohol intoxication Stated Complaint: DETOX Time Seen by Provider: 02/03/17 19:49 History Source: Patient Exam Limitations: No Limitations - History of Present Illness Initial Comments: 02/03/17 20:31 41-year-old male with a history of hypertension presents to the emergency department requesting for alcohol detox. Patient denies any nausea/vomiting, fever/chills, headaches, dizziness, lightheadedness, neck pains, back pains, chest pain, shortness of breath, abdominal pains, urinary symptoms, David numbness or tingling sensation. Patient states his last drink was approximately 12 noon today when he had a sixpack of beer. Timing/Duration: 24 hours Associated Symptoms: reports: denies symptoms Past History - Past Medical History Allergies/Adverse Reactions: Allergies Allergy/AdvReac Type Severity Reaction Status Date / Time No Known Allergies Allergy Verified 02/03/17 18:40 Home Medications: Ambulatory Orders Amlodipine Besylate [Norvasc -] 10 mg PO DAILY 01/10/17 Losartan Potassium [Cozaar -] 100 mg PO DAILY 01/10/17 Anemia: No Asthma: No Cardiac Disorders: No CVA: No COPD: No Dementia: No Diabetes: No GI Disorders: No Disorders: No HTN: Yes (ON MEDS) Hypercholesterolemia: No Kidney Stones: No Seizures: Yes (alcohol related seizure last 01/01/17) Thyroid Disease: No - Surgical History Abdominal Surgery: No Appendectomy: Yes (at age 13) Cardiac Surgery: No Cholecystectomy: No Lung Surgery: No Neurologic Surgery: No Orthopedic Surgery: No - Reproductive History Testicular Surgery: No - Immunization History Immunization Up to Date: Yes - Suicide/Smoking/Psychosocial Hx Smoking History: Current every day smoker Have you smoked in the past 12 months: Yes Number of Cigarettes Smoked Daily: 20 Cigars Per Day: 0 Information on smoking cessation initiated: No 'Breaking Loose' booklet given: 01/10/17 Hx Alcohol Use: No Drug/Substance Use Hx: No Substance Use Type: Alcohol Hx Substance Use Treatment: Yes ([facility] 03/25/16 to 03/28/16) Review of Systems - Review of Systems Able to Perform ROS?: Yes Comments:: 02/03/17 22:11 CONSTITUTIONAL: Absent: fever, chills, diaphoresis, generalized weakness, malaise, loss of appetite HEENT: Absent: rhinorrhea, nasal congestion, throat pain, throat swelling, difficulty swallowing, mouth swelling, ear pain, eye pain, visual Changes CARDIOVASCULAR: Absent: chest pain, loss of consciousness, palpitations, irregular heart rate, peripheral edema RESPIRATORY: Absent: cough, shortness of breath, dyspnea with exertion, orthopnea, wheezing, stridor, hemoptysis GASTROINTESTINAL: Absent: abdominal pain, abdominal distension, nausea, vomiting, diarrhea, constipation, melena, hematochezia GENITOURINARY: Absent: dysuria, frequency, urgency, hesitancy, hematuria, flank pain, genital pain MUSCULOSKELETAL: Absent: myalgia, arthralgia, joint swelling SKIN: Absent: rash, itching, pallor HEMATOLOGIC/IMMUNOLOGIC: Absent: easy bleeding, easy bruising, lymphadenopathy, frequent infections ENDOCRINE: Absent: unexplained weight gain, unexplained weight loss, heat intolerance, cold intolerance NEUROLOGIC: Absent: headache, focal weakness or paresthesias, dizziness, unsteady gait, seizure, mental status changes, bladder or bowel incontinence PSYCHIATRIC: Absent: anxiety, depression, suicidal or homicidal ideation, hallucinations. Is the patient limited Macedonian proficient: No *Physical Exam - Vital Signs Last Vital Signs Temp Pulse Resp BP Pulse Ox 98.7 F 119 H 15 146/98 98 02/03/17 18:40 02/03/17 18:40 02/03/17 18:40 02/03/17 18:40 02/03/17 18:40 - Physical Exam Comments: 02/03/17 22:11 GENERAL: Well developed, well nourished. Awake and alert. No acute distress. HEENT: Normocephalic, atraumatic. PERRLA, EOMI. No conjunctival pallor. Sclera are non- icteric. Moist mucous membranes. Oropharynx is clear. NECK: Supple. Full ROM. No JVD. Carotid pulses 2+ and symmetric, without bruits. No thyromegaly. No lymphadenopathy. CARDIOVASCULAR: Regular rate and rhythm. No murmurs, rubs, or gallops. Distal pulses are 2+ and symmetric. PULMONARY: No evidence of respiratory distress. Lungs clear to auscultation bilaterally. No wheezing, rales or rhonchi. ABDOMINAL: Soft. Non-tender. Non-distended. No rebound or guarding. No organomegaly. Normoactive bowel sounds. MUSCULOSKELETAL Normal range of motion at all joints. No bony deformities or tenderness. No CVA tenderness. EXTREMITIES: No cyanosis. No clubbing. No edema. No calf tenderness. SKIN: Warm and dry. Normal capillary refill. No rashes. No jaundice. NEUROLOGICAL: Alert, awake, appropriate. Cranial nerves 2-12 intact. No deficits to light touch and temperature in face, upper extremities and lower extremities. No motor deficits in the in face, upper extremities and lower extremities. Normoreflexic in the upper and lower extremities. Normal speech. Toes are down- going bilaterally. Gait is normal without ataxia. PSYCHIATRIC: Cooperative. Good eye contact. Appropriate mood and affect. ED Treatment Course - LABORATORY CBC & Chemistry Diagram: 02/04/17 00:40 *DC/Admit/Observation/Transfer Diagnosis at time of Disposition: Alcohol dependence with uncomplicated withdrawal - Discharge Dispostion Condition at time of disposition: Stable - Referrals Referrals: Steven Cordoba MD [Primary Care Provider] - - Patient Instructions Printed Discharge Instructions: DI for Alcohol Abuse Additional Instructions: Return to the ER for any concerns. You may not return back to detox because it has been less than 30 days since your discharge Progress Note - Progress Note Progress Note: 0206hrs: Spoke to Isaura DANIELSON from Detox, patient recently finished a detox program from January 14 to January 17. Therefore, he is unable to return back to the program for at least 30 days from the date of discharge. 0225hrs: Signed out to Dr. Mariee.
[2017-02-03] MEDS ORDERED: SODIUM CHLORIDE 1,000 ML IV STA (20:50)
[2017-02-04 01:25] LABS: ALBUMIN 3.3 g/dl (3.4-5.0); ANION GAP 9 (8-16); CALCIUM 7.5 mg/dL (8.5-10.1); CO2 24 mmol/L (21-32); CREATININE 0.8 mg/dL (0.7-1.3); GLUCOSE,RANDOM 72 mg/dL (74-106); SGOT/AST 22 U/L (15-37); SGPT/ALT 16 U/L (12-78)
[2017-02-04 01:27] LABS: ALK PHOS 79 U/L (45-117); BILIRUBIN,TOTAL 0.6 mg/dL (0.2-1.0); TOT PROT 6.2 g/dl (6.4-8.2)
--- NOTE | 2017-02-04 06:08 | PDOC ---
*Physical Exam - Vital Signs Last Vital Signs Temp Pulse Resp BP Pulse Ox 98.7 F 119 H 15 146/98 98 02/03/17 18:40 02/03/17 18:40 02/03/17 18:40 02/03/17 18:40 02/03/17 18:40 ED Treatment Course - LABORATORY CBC & Chemistry Diagram: 02/04/17 00:40 - ADDITIONAL ORDERS Additional order review: Laboratory Results 02/04/17 02/03/17 02/03/17 00:40 20:50 20:50 Sodium 141 Cancelled Potassium 3.8 Cancelled Chloride 108 H Cancelled Carbon Dioxide 24 Cancelled Anion Gap 9 Cancelled BUN 9 Cancelled Creatinine 0.8 Cancelled Creat Clearance w eGFR > 60 Cancelled Random Glucose 72 L D Cancelled Calcium 7.5 L Cancelled Total Bilirubin 0.6 D Cancelled AST 22 D Cancelled ALT 16 Cancelled Alkaline Phosphatase 79 Cancelled Total Protein 6.2 L Cancelled Albumin 3.3 L Cancelled Alcohol, Quantitative 254.0 H* - Medications Given in the ED: ED Medications Discontinued Medications Generic Name Dose Route Start Last Admin Trade Name Freq PRN Reason Stop Dose Admin Sodium Chloride 1,000 mls @ 1,000 mls/hr 02/03/17 20:50 02/03/17 21:25 Normal Saline - IV 02/03/17 21:49 1,000 mls/hr ASDIR STA Administration *DC/Admit/Observation/Transfer Diagnosis at time of Disposition: Alcoholic intoxication Qualifiers: Complication of substance-induced condition: uncomplicated Qualified Code(s): F10.920 - Alcohol use, unspecified with intoxication, uncomplicated - Discharge Dispostion Disposition: HOME Condition at time of disposition: Stable Admit: No - Referrals Referrals: Steven Cordoba MD [Primary Care Provider] - - Patient Instructions Printed Discharge Instructions: DI for Alcohol Abuse Additional Instructions: Return to the ER for any concerns. You may not return back to detox because it has been less than 30 days since your discharge - Post Discharge Activity
[2017-02-04] MEDS ORDERED: diazePAM 5 MG TABLET PO ONE (07:19)
[2017-02-04] MEDS ORDERED: chlordiazePOXIDE HCL 25 MG CAPSULE PO ONE (07:19)
[2017-02-04] MEDS ORDERED: chlordiazePOXIDE HCL 25 MG CAPSULE ONE (07:21)
[2017-02-04] MEDS ORDERED: diazePAM 5 MG TABLET ONE (07:21)
== END 2017-02-04 07:27 | disposition home or self-care (01) ==
LOC: JER 18:01
PROC: 3E0337Z Introduction of Electrolytic and Water Balance Substance into Peripheral Vein, Percutaneous Approach (ICD-10-PCS; principal; 2017-02-03)
DX: F10.230 Alcohol dependence with withdrawal, uncomplicated (principal); I10 Essential (primary) hypertension; G40.509 Epileptic seizures related to external causes, not intractable, without status epilepticus; F17.210 Nicotine dependence, cigarettes, uncomplicated
CPT/HCPCS: 36415; 80053; 80307; 99282-25

== ENCOUNTER 2017-02-04 08:15 | Inpatient (IN) | payer OTHER ==
[2017-02-04 09:56] VITALS: BMI 28.6
--- NOTE | 2017-02-04 15:38 | HP ---
Admission ROS [facility] - [facility] Chief Complaint: I need rehab because I'm unable to stop drinking. Allergies/Adverse Reactions: Allergies Allergy/AdvReac Type Severity Reaction Status Date / Time No Known Allergies Allergy Verified 02/04/17 13:20 History of Present Illness: 41 y/o man with a long hx. of alcoholism, recently completed detox at the beginning of the month is admitted to rehab.Pt. was at [facility] ED last night. Exam Limitations: No Limitations - Ebola screening Have you traveled outside of the country in the last 21 days: No Have you had contact with anyone from an Ebola affected area: No Have you been sick,other than usual withdrawal symptoms: No Do you have a fever: No - Review of Systems Constitutional: No Symptoms Reported EENT: reports: No Symptoms Reported Respiratory: reports: No Symptoms reported Cardiac: reports: No Symptoms Reported GI: reports: Nausea : reports: No Symptoms Reported Musculoskeletal: reports: No Symptoms Reported Integumentary: reports: No Symptoms Reported Neuro: reports: Tremors (mild) Endocrine: reports: No Symptoms Reported Hematology: reports: No Symptoms Reported Psychiatric: reports: No Sypmtoms Reported Other Systems: Reviewed and Negative Patient History - Patient Medical History Hx Anemia: No Hx Asthma: No Hx Chronic Obstructive Pulmonary Disease (COPD): No Hx Cardiac Disorders: No Hx Hypertension: Yes Hx Hypercholesterolemia: No HX Cerebrovascular Accident: No Hx Seizures: Yes (alcohol related-last episode was in 10/2016) Hx Dementia: No Hx Diabetes: No Hx Gastrointestinal Disorders: No Hx Genitourinary Disorders: No Hx Sexually Transmitted Disorders: No Hx Renal Disease (ESRD): No Hx Thyroid Disease: No Hx Human Immunodeficiency Virus (HIV): No Hx Hepatitis C: No Hx Depression: No Hx Suicide Attempt: No Hx Bipolar Disorder: No Hx Schizophrenia: No - Patient Surgical History Past Surgical History: Yes Hx Neurologic Surgery: No Hx Cataract Extraction: No Hx Cardiac Surgery: No Hx Lung Surgery: No Hx Breast Surgery: No Hx Breast Biopsy: No Hx Abdominal Surgery: No Hx Appendectomy: Yes (at age 13) Hx Cholecystectomy: No Hx Genitourinary Surgery: No Hx Section: No Hx Orthopedic Surgery: No Anesthesia Reaction: No - PPD History Previous Implant?: Yes Documented Results: Negative w/proof Implanted On Prior [facility] Admission?: Yes Date: 03/27/16 Results: 0 mm PPD to be Administered?: No - Smoking Cessation Smoking history: Current every day smoker Have you smoked in the past 12 months: Yes Aproximately how many cigarettes per day: 20 Cigars Per Day: 0 Hx Chewing Tobacco Use: No Initiated information on smoking cessation: Yes 'Breaking Loose' booklet given: 02/04/17 - Substance & Tx. History Hx Alcohol Use: Yes Hx Substance Use: No Substance Use Type: Alcohol Hx Substance Use Treatment: Yes (Detox at [facility] 01/2017) - Substances Abused Alcohol-beer Route: Oral Frequency: Daily Amount used: 3-4 (24 oz.) Age of first use: 18 Date of Last Use: 02/03/17 Family Disease History - Family Disease History Family Disease History: Other: Mother (dvt leg and pulmonary embolism) Admission Physical Exam [facility] - Vital Signs Vital Signs: Vital Signs - 24 hr 02/04/17 09:42 Temperature 96.2 F L Pulse Rate 110 H Respiratory 20 Rate Blood Pressure 165/113 - Physical General Appearance: Yes: Anxious HEENTM: Yes: Within Normal Limits Respiratory: Yes: Chest Non-Tender, Lungs Clear, Normal Breath Sounds Neck: Yes: Supple Breast: Yes: Breast Exam Deferred Cardiology: Yes: Regular Rhythm, Regular Rate, S1, S2 Abdominal: Yes: Normal Bowel Sounds, Non Tender, Soft Genitourinary: Yes: Within Normal Limits Back: Yes: Within Normal Limits Musculoskeletal: Yes: Within Normal Limits Extremities: Yes: Within Normal Limits Neurological: Yes: Fully Oriented, Alert Integumentary: Yes: Diaphoresis Lymphatic: Yes: Within Normal Limits - Diagnostic (1) HTN (hypertension) Current Visit: Yes Status: Chronic Qualifiers: Hypertension type: essential hypertension (2) Uncomplicated alcohol dependence Current Visit: Yes Status: Acute Cleared for Admission [facility] - Detox or Rehab Claeared for Rehab Admission: Yes [facility] Breath Alcohol Content Breath Alcohol Content: 0 Urine Drug Screen - Results Drug Screen Negative: No Urine Drug Screen Results: BZO-Benzodiazepines Inpatient Rehab Admission - Initial Determination Are CD services needed?: Yes Free of communicable disease: Yes Not in need of hospitalization: Yes - Rehab Admission Criteria Previous failed treatment: Yes Poor recovery environment: Yes Comorbidities: Yes Lacks judgement: Yes Patient is meeting Inpatient Rehab admission criteria:: Yes
[2017-02-04] MEDS ORDERED: ACETAMINOPHEN 325 MG TABLET (FP) PO PRN (16:01)
[2017-02-04] MEDS ORDERED: guaiFENesin/D-METHORPHAN HB 10 ML UNIT-DOSE CUPS PO PRN (16:01)
[2017-02-04] MEDS ORDERED: IBUPROFEN 400 MG TABLET (FP) PO PRN (16:01)
[2017-02-04] MEDS ORDERED: MENTHOL/PHENOL 1 EACH UD MM PRN (16:01)
[2017-02-04] MEDS ORDERED: MAGNESIUM HYDROX 2400MG/30ML ORAL SUSPENSION 30 ML CUP PO PRN (16:01)
[2017-02-04] MEDS ORDERED: P-EPHED 60MG/TRIPROLIDI 2.5MG TABLET PO PRN (16:01)
[2017-02-04] MEDS ORDERED: NICOTINE POLACRILEX 4 MG GUM BC PRN (16:01)
[2017-02-04] MEDS ORDERED: MAG HYDROX/AL HYDROX/SIMETH 30 ML UNIT-DOSE CUP PO PRN (16:01)
[2017-02-04] MEDS ORDERED: LOPERAMIDE HCL 2 MG CAPSULE PO PRN (16:01)
[2017-02-04] MEDS ORDERED: MAGNESIUM CITRATE 300 ML BOTTLE PO PRN (16:01)
[2017-02-04] MEDS ORDERED: hydrOXYzine PAMOATE 50 MG CAPSULE (FP) PO PRN (16:03)
[2017-02-04] MEDS: LOSARTAN POTASSIUM 50 MG TABLET (FP) PO SCH (18:36)
[2017-02-04] MEDS: amLODIPine BESYLATE 10 MG TABLET (FP) PO SCH (18:36)
[2017-02-04] MEDS: NICOTINE 21 MG/24 HOURS TOPICAL PATCH TD SCH (18:37)
[2017-02-04] MEDS: THIAMINE HCL 100 MG TABLET (FP) PO SCH (21:17)
[2017-02-04] MEDS: diphenhydrAMINE HCL 50 MG CAPSULE PO PRN (21:18)
[2017-02-04 22:11] LABS: URINE APPEARANCE CLEAR; URINE BILIRUBIN NEGATIVE (NEGATIVE); URINE BLOOD NEGATIVE (NEGATIVE); URINE COLOR YELLOW; URINE GLUCOSE (UA) NEGATIVE (NEGATIVE); URINE KETONE TRACE (NEGATIVE); URINE LEUK ESTERASE NEGATIVE (NEGATIVE); URINE NITRITE NEGATIVE (NEGATIVE); URINE PROTEIN NEGATIVE (NEGATIVE); URINE UROBILINOGEN NEGATIVE mg/dL (0.2-1.0)
[2017-02-05] MEDS: amLODIPine BESYLATE 10 MG TABLET (FP) PO SCH ×2 (06:38→10:15)
[2017-02-05] MEDS: LOSARTAN POTASSIUM 50 MG TABLET (FP) PO SCH ×2 (06:38→10:15)
[2017-02-05] MEDS: NICOTINE 21 MG/24 HOURS TOPICAL PATCH TD SCH (10:13)
[2017-02-05] MEDS: PRENATAL VITAMINS W/ FOLIC ACID TABLET (FP) PO SCH (10:13)
[2017-02-05] MEDS: METOPROLOL TARTRATE 25 MG TABLET (FP) PO SCH ×2 (10:15→21:30)
--- NOTE | 2017-02-05 10:45 | EKG ---
Test Reason : Blood Pressure : / mmHG Vent. Rate : 099 BPM Atrial Rate : 099 BPM P-R Int : 164 ms QRS Dur : 082 ms QT Int : 354 ms P-R-T Axes : 046 050 038 degrees QTc Int : 454 ms NORMAL SINUS RHYTHM NORMAL ECG WHEN COMPARED WITH ECG OF 31-JAN-2017 06:38, NO SIGNIFICANT CHANGE WAS FOUND Confirmed by JOANN WALKER MD ([id number]) on 02/05/2017 10:44:48 AM Referred By: Confirmed By:JOANN WALKER MD
[2017-02-05] MEDS ORDERED: cloNIDine HCL 0.1 MG TABLET PO ONE (10:59)
[2017-02-05] MEDS ORDERED: hydrOXYzine HCL 25 MG TABLET (FP) PO ONE (11:00)
--- NOTE | 2017-02-05 11:16 | HP ---
Psychiatrist Admission - Data Date of interview: 02/05/17 Admission source: [facility] Identifying data: This is the first 5N inpatient rehabilitation admission for this 41 year old single Malagasy/Japanese male, who is domiciled residing in [place] with his mother and employed at [employer]. Medical History: HTN, Appendectomy, history of alcohol withdrawal seizures x 2. Smokes cigarettes 1 PPD. Psychiatric History: Patient denies history of psychiatric treatment. Physical/Sexual Abuse/Trauma History: Patient denies history of sexual, physical and verbal abuse Additional Comment: never , parents . Vital Signs: Vital Signs - 24 hr 02/04/17 02/05/17 02/05/17 21:00 00:30 03:30 Temperature Pulse Rate 97 H Respiratory 16 16 Rate Blood Pressure 158/112 02/05/17 06:53 Temperature 98.1 F Pulse Rate 101 H Respiratory 16 Rate Blood Pressure 154/105 Allergies/Adverse Reactions: Allergies Allergy/AdvReac Type Severity Reaction Status Date / Time No Known Allergies Allergy Verified 02/04/17 13:20 Date of last physical exam: 02/04/17 Concur with the findings of this exam: Yes - Substance Abuse/Tx History Hx Alcohol Use: Yes (started at age of 18 ) Hx Substance Use: No Substance Use Type: Alcohol (daily 3-4 of 24 oz beer) Hx Substance Use Treatment: Yes ([facility]) Mental Status Exam - Mental Status Exam Alert and Oriented to: Time, Place, Person Cognitive Function: Good Patient Appearance: Well Groomed Mood: Hopeful Affect: Appropriate, Mood Congruent Patient Behavior: Appropriate, Cooperative Speech Pattern: Clear, Appropriate Voice Loudness: Normal Thought Process: Intact, Goal Oriented Thought Disorder: Not Present Hallucinations: Denies Suicidal Ideation: Denies Homicidal Ideation: Denies Insight/Judgement: Fair Sleep: Fair Appetite: Fair Muscle strength/Tone: Normal Gait/Station: Normal Psychiatric Findings - Problem List ([place] 1, 2,3) (1) HTN (hypertension) Current Visit: Yes Status: Chronic Qualifiers: Hypertension type: essential hypertension (2) Nicotine dependence Current Visit: No Status: Chronic (3) Alcohol dependence Current Visit: Yes Status: Acute - Initial Treatment Plan Initial Treatment Plan: Discussed inidcations an properties of Campral with the patient, med. was recommended patient reported he needs time to think about medications, will continue to monitor rpogress.
[2017-02-05] MEDS: THIAMINE HCL 100 MG TABLET (FP) PO SCH (21:30)
[2017-02-06] MEDS: PRENATAL VITAMINS W/ FOLIC ACID TABLET (FP) PO SCH (10:13)
[2017-02-06] MEDS: METOPROLOL TARTRATE 25 MG TABLET (FP) PO SCH ×2 (10:14→21:27)
[2017-02-06] MEDS: amLODIPine BESYLATE 10 MG TABLET (FP) PO SCH (10:14)
[2017-02-06] MEDS: LOSARTAN POTASSIUM 50 MG TABLET (FP) PO SCH (10:14)
[2017-02-06] MEDS: NICOTINE 21 MG/24 HOURS TOPICAL PATCH TD SCH (10:14)
[2017-02-06] MEDS: THIAMINE HCL 100 MG TABLET (FP) PO SCH (21:27)
[2017-02-07] MEDS: PRENATAL VITAMINS W/ FOLIC ACID TABLET (FP) PO SCH (10:05)
[2017-02-07] MEDS: LOSARTAN POTASSIUM 50 MG TABLET (FP) PO SCH (10:05)
[2017-02-07] MEDS: amLODIPine BESYLATE 10 MG TABLET (FP) PO SCH (10:05)
[2017-02-07] MEDS: METOPROLOL TARTRATE 25 MG TABLET (FP) PO SCH ×2 (10:05→21:22)
[2017-02-07] MEDS: NICOTINE 21 MG/24 HOURS TOPICAL PATCH TD SCH (10:05)
[2017-02-07] MEDS: diphenhydrAMINE HCL 50 MG CAPSULE PO PRN (21:22)
[2017-02-07] MEDS: THIAMINE HCL 100 MG TABLET (FP) PO SCH (21:22)
[2017-02-08] MEDS: LOSARTAN POTASSIUM 50 MG TABLET (FP) PO SCH (10:05)
[2017-02-08] MEDS: amLODIPine BESYLATE 10 MG TABLET (FP) PO SCH (10:05)
[2017-02-08] MEDS: METOPROLOL TARTRATE 25 MG TABLET (FP) PO SCH ×2 (10:05→21:18)
[2017-02-08] MEDS: NICOTINE 21 MG/24 HOURS TOPICAL PATCH TD SCH (10:05)
[2017-02-08] MEDS: PRENATAL VITAMINS W/ FOLIC ACID TABLET (FP) PO SCH (10:05)
[2017-02-08] MEDS: THIAMINE HCL 100 MG TABLET (FP) PO SCH (21:18)
[2017-02-08] MEDS: diphenhydrAMINE HCL 50 MG CAPSULE PO PRN (21:19)
[2017-02-09] MEDS: amLODIPine BESYLATE 10 MG TABLET (FP) PO SCH (09:58)
[2017-02-09] MEDS: PRENATAL VITAMINS W/ FOLIC ACID TABLET (FP) PO SCH (09:58)
[2017-02-09] MEDS: METOPROLOL TARTRATE 25 MG TABLET (FP) PO SCH ×2 (09:58→21:26)
[2017-02-09] MEDS: LOSARTAN POTASSIUM 50 MG TABLET (FP) PO SCH (09:58)
[2017-02-09] MEDS: NICOTINE 21 MG/24 HOURS TOPICAL PATCH TD SCH (09:59)
[2017-02-09] MEDS: THIAMINE HCL 100 MG TABLET (FP) PO SCH (21:26)
[2017-02-09] MEDS: diphenhydrAMINE HCL 50 MG CAPSULE PO PRN (21:27)
[2017-02-10] MEDS: amLODIPine BESYLATE 10 MG TABLET (FP) PO SCH (10:02)
[2017-02-10] MEDS: METOPROLOL TARTRATE 25 MG TABLET (FP) PO SCH ×2 (10:02→21:18)
[2017-02-10] MEDS: LOSARTAN POTASSIUM 50 MG TABLET (FP) PO SCH (10:02)
[2017-02-10] MEDS: NICOTINE 21 MG/24 HOURS TOPICAL PATCH TD SCH (10:02)
[2017-02-10] MEDS: PRENATAL VITAMINS W/ FOLIC ACID TABLET (FP) PO SCH (10:02)
[2017-02-10] MEDS: THIAMINE HCL 100 MG TABLET (FP) PO SCH (21:18)
[2017-02-10] MEDS: diphenhydrAMINE HCL 50 MG CAPSULE PO PRN (21:18)
[2017-02-11] MEDS: METOPROLOL TARTRATE 25 MG TABLET (FP) PO SCH ×2 (09:52→21:18)
[2017-02-11] MEDS: LOSARTAN POTASSIUM 50 MG TABLET (FP) PO SCH (09:52)
[2017-02-11] MEDS: amLODIPine BESYLATE 10 MG TABLET (FP) PO SCH (09:52)
[2017-02-11] MEDS: PRENATAL VITAMINS W/ FOLIC ACID TABLET (FP) PO SCH (09:52)
[2017-02-11] MEDS: NICOTINE 21 MG/24 HOURS TOPICAL PATCH TD SCH (09:53)
[2017-02-11] MEDS: THIAMINE HCL 100 MG TABLET (FP) PO SCH (21:18)
[2017-02-11] MEDS: diphenhydrAMINE HCL 50 MG CAPSULE PO PRN (21:18)
[2017-02-12] MEDS: NICOTINE 21 MG/24 HOURS TOPICAL PATCH TD SCH (09:40)
[2017-02-12] MEDS: PRENATAL VITAMINS W/ FOLIC ACID TABLET (FP) PO SCH (09:40)
[2017-02-12] MEDS: METOPROLOL TARTRATE 25 MG TABLET (FP) PO SCH ×2 (09:40→21:30)
[2017-02-12] MEDS: amLODIPine BESYLATE 10 MG TABLET (FP) PO SCH (09:40)
[2017-02-12] MEDS: LOSARTAN POTASSIUM 50 MG TABLET (FP) PO SCH (09:40)
[2017-02-12] MEDS: THIAMINE HCL 100 MG TABLET (FP) PO SCH (21:30)
[2017-02-12] MEDS: diphenhydrAMINE HCL 50 MG CAPSULE PO PRN (21:41)
[2017-02-13] MEDS: METOPROLOL TARTRATE 25 MG TABLET (FP) PO SCH ×2 (10:00→21:20)
[2017-02-13] MEDS: NICOTINE 21 MG/24 HOURS TOPICAL PATCH TD SCH (10:00)
[2017-02-13] MEDS: amLODIPine BESYLATE 10 MG TABLET (FP) PO SCH (10:00)
[2017-02-13] MEDS: LOSARTAN POTASSIUM 50 MG TABLET (FP) PO SCH (10:00)
[2017-02-13] MEDS: PRENATAL VITAMINS W/ FOLIC ACID TABLET (FP) PO SCH (10:00)
[2017-02-13] MEDS: THIAMINE HCL 100 MG TABLET (FP) PO SCH (21:20)
[2017-02-13] MEDS: diphenhydrAMINE HCL 50 MG CAPSULE PO PRN (21:20)
[2017-02-14] MEDS: LOSARTAN POTASSIUM 50 MG TABLET (FP) PO SCH (10:00)
[2017-02-14] MEDS: PRENATAL VITAMINS W/ FOLIC ACID TABLET (FP) PO SCH (10:00)
[2017-02-14] MEDS: METOPROLOL TARTRATE 25 MG TABLET (FP) PO SCH ×2 (10:00→21:14)
[2017-02-14] MEDS: amLODIPine BESYLATE 10 MG TABLET (FP) PO SCH (10:00)
[2017-02-14] MEDS: NICOTINE 21 MG/24 HOURS TOPICAL PATCH TD SCH (10:01)
[2017-02-14] MEDS: THIAMINE HCL 100 MG TABLET (FP) PO SCH (21:14)
[2017-02-14] MEDS: diphenhydrAMINE HCL 50 MG CAPSULE PO PRN (21:14)
[2017-02-15] MEDS: NICOTINE 21 MG/24 HOURS TOPICAL PATCH TD SCH (10:03)
[2017-02-15] MEDS: PRENATAL VITAMINS W/ FOLIC ACID TABLET (FP) PO SCH (10:03)
[2017-02-15] MEDS: METOPROLOL TARTRATE 25 MG TABLET (FP) PO SCH ×2 (10:03→21:22)
[2017-02-15] MEDS: amLODIPine BESYLATE 10 MG TABLET (FP) PO SCH (10:03)
[2017-02-15] MEDS: LOSARTAN POTASSIUM 50 MG TABLET (FP) PO SCH (10:03)
[2017-02-15] MEDS: THIAMINE HCL 100 MG TABLET (FP) PO SCH (21:22)
[2017-02-15] MEDS: diphenhydrAMINE HCL 50 MG CAPSULE PO PRN (21:23)
[2017-02-16] MEDS: METOPROLOL TARTRATE 25 MG TABLET (FP) PO SCH ×2 (09:57→21:08)
[2017-02-16] MEDS: LOSARTAN POTASSIUM 50 MG TABLET (FP) PO SCH (09:57)
[2017-02-16] MEDS: amLODIPine BESYLATE 10 MG TABLET (FP) PO SCH (09:58)
[2017-02-16] MEDS: PRENATAL VITAMINS W/ FOLIC ACID TABLET (FP) PO SCH (09:58)
[2017-02-16] MEDS: NICOTINE 21 MG/24 HOURS TOPICAL PATCH TD SCH (09:58)
[2017-02-16] MEDS: THIAMINE HCL 100 MG TABLET (FP) PO SCH (21:08)
[2017-02-16] MEDS: diphenhydrAMINE HCL 50 MG CAPSULE PO PRN (21:09)
[2017-02-17 06:42] VITALS: TEMP 97.4
[2017-02-17] MEDS: LOSARTAN POTASSIUM 50 MG TABLET (FP) PO SCH (10:18)
[2017-02-17] MEDS: amLODIPine BESYLATE 10 MG TABLET (FP) PO SCH (10:18)
[2017-02-17] MEDS: PRENATAL VITAMINS W/ FOLIC ACID TABLET (FP) PO SCH (10:18)
[2017-02-17] MEDS: METOPROLOL TARTRATE 25 MG TABLET (FP) PO SCH ×2 (10:18→21:14)
[2017-02-17] MEDS: NICOTINE 21 MG/24 HOURS TOPICAL PATCH TD SCH (10:19)
--- NOTE | 2017-02-17 12:20 | PN ---
Psychiatric Progress Note Vital Signs: Vital Signs Period Temp Pulse Resp BP Sys/Caceres Pulse Ox Last 24 Hr 97.4 F 83-90 16-18 117-134/68-82 Date of Session: 02/17/17 Chief Complaint:: discharge visit HPI: Patient is addressing alcoohl, nicotine dependence. ROS: HTN medically managed. Current Medications: Active Medications Generic Name Dose Route Start Last Admin Trade Name Freq PRN Reason Stop Dose Admin Acetaminophen 650 mg 02/04/17 16:01 Tylenol - PO Q4H PRN PAIN Al Hydroxide/Mg Hydroxide 30 ml 02/04/17 16:01 Mylanta Oral Suspension - PO Q6H PRN DYSPEPSIA Amlodipine Besylate 10 mg 02/04/17 17:15 02/17/17 10:18 Norvasc - PO 10 mg DAILY MARIEL Administration Diphenhydramine HCl 50 mg 02/04/17 16:01 02/16/17 21:09 Benadryl - PO 50 mg HSMR1 PRN Administration INSOMNIA Eucalyptus/Menthol/Phenol/Sorbitol 1 each 02/04/17 16:01 Cepastat Lozenge - MM Q4H PRN SORE THROAT Guaifenesin 10 ml 02/04/17 16:01 Robitussin Dm - PO Q6H PRN COUGH Hydroxyzine Pamoate 50 mg 02/04/17 16:03 Vistaril - PO Q4H PRN FOR ITCHING Loperamide HCl 4 mg 02/04/17 16:01 Imodium - PO Q6H PRN DIARRHEA Losartan Potassium 100 mg 02/04/17 17:15 02/17/17 10:18 Cozaar - PO 100 mg DAILY MARIEL Administration Magnesium Citrate 300 ml 02/04/17 16:01 Citroma - PO Q48H PRN CONSTIPATION Magnesium Hydroxide 30 ml 02/04/17 16:01 Milk Of Magnesia - PO DAILY PRN CONSTIPATION Metoprolol Tartrate 25 mg 02/05/17 10:00 02/17/17 10:18 Lopressor - PO 25 mg BID MARIEL Administration Nicotine 21 mg 02/04/17 17:15 02/17/17 10:19 Nicoderm Patch - TD 21 mg DAILY MARIEL Administration Nicotine Polacrilex 4 mg 02/04/17 16:01 Nicorette Gum - BC Q2H PRN NICOTINE REPLACEMENT RX Multivit/Folic Acid/Iron 1 tab 02/05/17 10:00 02/17/17 10:18 Vitamins (Sjr) - PO 1 tab DAILY MARIEL Administration Thiamine HCl 100 mg 02/04/17 22:00 02/16/17 21:08 Vitamin B1 - PO 100 mg HS MARIEL Administration Current Side Effect: No Lab tests ordered: No Lab tests reviewed: Yes Provider note:: Patient will complete his treatment on 02/18/17 and meet his goals, will continue to address his issues at the next level oif care. He verbalized understanding of the negative consequenses of his addiction and importance of changing behavior for the utilizations of supports to prevent relapses, patient was encouraged to continue maintain abstinece. Patient is stable for discharge on 02/18/17. Total face to face time:: 30 Mental Status Exam - Mental Status Exam Alert and Oriented to: Time, Place, Person Cognitive Function: Fair Patient Appearance: Well Groomed Mood: Hopeful Affect: Appropriate, Mood Congruent Patient Behavior: Appropriate, Cooperative Speech Pattern: Clear, Appropriate Voice Loudness: Normal Thought Process: Intact, Goal Oriented Thought Disorder: Not Present Hallucinations: Denies Suicidal Ideation: Denies Homicidal Ideation: Denies Insight/Judgement: Fair Sleep: Fair Appetite: Good Muscle strength/Tone: Normal Gait/Station: Normal Psychiatric Treatment Plan - Problem List (1) HTN (hypertension) Current Visit: Yes Qualifiers: Hypertension type: essential hypertension Qualified Code(s): I10 - Essential (primary) hypertension; I10 - Essential (primary) hypertension; I10 - Essential (primary) hypertension (2) Nicotine dependence Current Visit: No (3) Alcohol dependence Current Visit: Yes
[2017-02-17] MEDS: THIAMINE HCL 100 MG TABLET (FP) PO SCH (21:15)
[2017-02-17] MEDS: diphenhydrAMINE HCL 50 MG CAPSULE PO PRN (21:15)
[2017-02-18] MEDS: PRENATAL VITAMINS W/ FOLIC ACID TABLET (FP) PO SCH (10:05)
[2017-02-18] MEDS: NICOTINE 21 MG/24 HOURS TOPICAL PATCH TD SCH (10:06)
[2017-02-18] MEDS: amLODIPine BESYLATE 10 MG TABLET (FP) PO SCH (10:06)
[2017-02-18] MEDS: LOSARTAN POTASSIUM 50 MG TABLET (FP) PO SCH (10:06)
[2017-02-18] MEDS: METOPROLOL TARTRATE 25 MG TABLET (FP) PO SCH (10:06)
[2017-02-18 11:55] VITALS: BP 132/83; PULSE 95
== END 2017-02-18 11:00 | disposition home or self-care (01) | DRG 772 ==
LOC: YASAS 08:15 → Y5N 16:46
PROVIDERS: ADMIT Psychiatry & Neurology Psychiatry; ATTEND Psychiatry & Neurology Psychiatry
PROC: HZ42ZZZ Group Counseling for Substance Abuse Treatment, Cognitive-Behavioral (ICD-10-PCS; principal; 2017-02-04)
DX: F10.20 Alcohol dependence, uncomplicated (principal); F17.210 Nicotine dependence, cigarettes, uncomplicated; I10 Essential (primary) hypertension; Z86.69 Personal history of other diseases of the nervous system and sense organs
CPT/HCPCS: 36415; 81003; 86593; 93005; 93010

== ENCOUNTER 2017-06-03 16:27 | Emergency (ER) | payer OTHER ==
--- NOTE | 2017-06-03 16:33 | PDOC ---
Rapid Medical Evaluation Time Seen by Provider: 06/03/17 16:29 Medical Evaluation: Allergies Allergy/AdvReac Type Severity Reaction Status Date / Time No Known Allergies Allergy Verified 02/04/17 13:20 I have performed a brief in-person evaluation of this patient. The patient presents with a chief complaint of: detox from alcohol; drinks beer every day. Has never been to detox in the past. Pertinent physical exam findings: none I have ordered the following: labs, ekg for medical clearance for detox The patient will proceed to the ED for further evaluation. Discharge Disposition - Referrals Referrals: Steven Cordoba MD [Primary Care Provider] - - Patient Instructions - Post Discharge Activity
[2017-06-03 16:35] VITALS: BP 118/75; PULSE 96; TEMP 97.4; BMI 42.3
[2017-06-03 17:27] LABS: BASO % 1.1 % (0-2.0); EOS % 0.9 % (0-4.5); HEMATOCRIT 49.5 % (35.4-49); HEMOGLOBIN 16.8 GM/dL (11.7-16.9); LYMPH % 36.3 % (8-40); MCH 32.7 pg (25.7-33.7); MCHC 33.9 g/dl (32.0-35.9); MEAN CELL VOLUME 96.5 fl (80-96); MEAN PLT VOLUME 7.3 fl (7.5-11.1); NEUT % 47.7 % (42.8-82.8); PLATELET COUNT 304 K/MM3 (134-434); RBC 5.13 M/mm3 (4.00-5.60); RDW 12.9 % (11.9-15.9); WHITE BLOOD COUNT 5.6 K/mm3 (4.0-10.0)
[2017-06-03 18:42] LABS: ALBUMIN 4.2 g/dl (3.4-5.0); ALK PHOS 111 U/L (45-117); ANION GAP 10 (8-16); BILIRUBIN,TOTAL 0.3 mg/dL (0.2-1.0); BLOOD UREA NITROGEN 8 mg/dL (7-18); CALCIUM 8.3 mg/dL (8.5-10.1); CHLORIDE 108 mmol/L (98-107); CO2 25 mmol/L (21-32); CREATININE 0.8 mg/dL (0.7-1.3); GLUCOSE,RANDOM 85 mg/dL (74-106); POTASSIUM 4.6 mmol/L (3.5-5.1); SGOT/AST 27 U/L (15-37); SGPT/ALT 32 U/L (12-78); SODIUM 143 mmol/L (136-145); TOT PROT 8.3 g/dl (6.4-8.2)
--- NOTE | 2017-06-03 20:57 | PDOC ---
History of Present Illness - General Chief Complaint: Alcohol intoxication Stated Complaint: DETOX Time Seen by Provider: 06/03/17 16:29 - History of Present Illness Initial Comments: 06/03/17 20:57 CHIEF COMPLAINT: detox HISTORY OF PRESENT ILLNESS: 41-year-old male with a history of hypertension presents to the emergency department requesting for alcohol detox. Patient denies any nausea/vomiting, fever/chills, headaches, dizziness, lightheadedness , neck pains, back pains, chest pain, shortness of breath, abdominal pains, urinary symptoms, numbness or tingling, or any tremors. Patient states his last drink was right before he came in today, after he LBME'd from the hospital earlier. PAST MEDICAL HISTORY: Denies past medical history FAMILY HISTORY: Denies SOCIAL HISTORY: Daily drinker. SURGICAL HISTORY: Denies ALLERGIES: No known drug allergies REVIEW OF SYSTEMS General/Constitutional: Denies fever or chills. Denies weakness, weight change. HEENT: Denies change in vision. Denies ear pain or discharge. Denies sore throat. Cardiovascular: Denies chest pain or shortness of breath. Respiratory: Denies cough, wheezing, or hemoptysis. Gastrointestinal: Denies nausea, vomiting, diarrhea or constipation. Denies rectal bleeding. Genitourinary: Denies dysuria, frequency, or change in urination. Musculoskeletal: Denies joint or muscle swelling or pain. Denies neck or back pain. Skin and breasts: Denies rash or easy bruising. Neurologic: Denies headache, vertigo, loss of consciousness, or loss of sensation. Psychiatric: Denies depression or anxiety. Endocrine: Denies increased thirst. Denies abnormal weight change. Hematologic/Lymphatic: Denies anemia, easy bleeding, or history of blood clots. Allergic/Immunologic: Denies hives or skin allergy. Denies latex allergy. PHYSICAL EXAM General Appearance: Well-appearing, appropriately dressed. No apparent distress , no intoxication. HEENT: EOMI, PERRLA, normal ENT inspection, normal voice, TMs normal, pharynx normal. No conjunctival pallor. No photophobia, scleral icterus. Neck: Supple. Trachea midline. No tenderness, rigidity, carotid bruit, stridor , lymphadenopathy, or thyromegaly. Respiratory/Chest: Lungs CTAB. No shortness of breath, chest tenderness, respiratory distress, accessory muscle use. No crackles, rales, rhonchi, stridor , wheezing, dullness Cardiovascular: RRR. S1, S2. Gastrointestinal/Abdominal: Normal bowel sounds. Abdomen soft, non-distended. No tenderness or rebound tenderness. No organomegaly, pulsatile mass, guarding , hernia, hepatomegaly, splenomegaly. Lymphatic: No adenopathy, tenderness. Musculoskeletal/Extremities: Normal inspection. FROM of all extremities, normal capillary refill. Pelvis Stable. No CVA tenderness. No tenderness to extremities, pedal edema, swelling, erythema or deformity. Integumentary: Appropriate color, dry, warm. No cyanosis, erythema, jaundice or rash Neurologic: precinct captain II-XII intact. Fully oriented, alert. Appropriate mood/affect. Motor strength 5/5. No appreciable EOM palsy, facial droop or sensory deficit. 06/03/17 21:10 Past History - Past Medical History Allergies/Adverse Reactions: Allergies Allergy/AdvReac Type Severity Reaction Status Date / Time No Known Allergies Allergy Verified 06/03/17 16:30 Home Medications: Ambulatory Orders Amlodipine Besylate [Norvasc -] 10 mg PO DAILY #30 tab 02/17/17 Losartan Potassium [Cozaar -] 100 mg PO DAILY #30 tab 02/17/17 Anemia: No Asthma: No Cardiac Disorders: No CVA: No COPD: No Dementia: No Diabetes: No GI Disorders: No Disorders: No HTN: Yes Hypercholesterolemia: No Kidney Stones: No Seizures: Yes (alcohol related-last episode was in 10/2016) Thyroid Disease: No - Surgical History Abdominal Surgery: Yes Appendectomy: Yes (at age 13) Cardiac Surgery: No Cholecystectomy: No Lung Surgery: No Neurologic Surgery: No Orthopedic Surgery: No - Reproductive History Testicular Surgery: No - Immunization History Immunization Up to Date: Yes - Suicide/Smoking/Psychosocial Hx Smoking History: Current every day smoker Have you smoked in the past 12 months: Yes Number of Cigarettes Smoked Daily: 20 Cigars Per Day: 0 Information on smoking cessation initiated: No 'Breaking Loose' booklet given: 02/04/17 Hx Alcohol Use: Yes (beer daily.) Drug/Substance Use Hx: No Substance Use Type: Alcohol Hx Substance Use Treatment: Yes ([facility]) *Physical Exam - Vital Signs Last Vital Signs Temp Pulse Resp BP Pulse Ox 97.4 F L 96 H 18 118/75 98 06/03/17 16:29 06/03/17 16:29 06/03/17 16:29 06/03/17 16:29 06/03/17 16:29 ED Treatment Course - LABORATORY CBC & Chemistry Diagram: 06/03/17 17:15 06/03/17 17:15 - ADDITIONAL ORDERS Additional order review: Laboratory Results 06/03/17 17:15 Sodium 143 Potassium 4.6 D Chloride 108 H Carbon Dioxide 25 Anion Gap 10 BUN 8 Creatinine 0.8 Creat Clearance w eGFR > 60 Random Glucose 85 Calcium 8.3 L Total Bilirubin 0.3 D AST 27 D ALT 32 D Alkaline Phosphatase 111 D Total Protein 8.3 H D Albumin 4.2 D 06/03/17 17:15 RBC 5.13 D MCV 96.5 H MCHC 33.9 RDW 12.9 MPV 7.3 L Neutrophils % 47.7 D Lymphocytes % 36.3 D Monocytes % 14.0 H Eosinophils % 0.9 D Basophils % 1.1 Medical Decision Making - Medical Decision Making 06/03/17 21:58 41-year-old male with a history of hypertension presents to the emergency department requesting for alcohol detox. Discussed case with Penny at [facility] who accepts patient to inpatient detox at [facility]. At this time patient is nowhere to be found in ER; called patient 's phone but the number is not currently accepting phone calls. 06/03/17 22:04 *DC/Admit/Observation/Transfer Diagnosis at time of Disposition: Alcohol dependence - Referrals Referrals: Steven Cordoba MD [Primary Care Provider] - - Patient Instructions - Post Discharge Activity
--- NOTE | 2017-06-03 21:17 | PDOC ---
*Physical Exam - Vital Signs Last Vital Signs Temp Pulse Resp BP Pulse Ox 97.4 F L 96 H 18 118/75 98 06/03/17 16:29 06/03/17 16:29 06/03/17 16:29 06/03/17 16:29 06/03/17 16:29 ED Treatment Course - LABORATORY CBC & Chemistry Diagram: 06/03/17 17:15 06/03/17 17:15 - ADDITIONAL ORDERS Additional order review: Laboratory Results 06/03/17 17:15 Sodium 143 Potassium 4.6 D Chloride 108 H Carbon Dioxide 25 Anion Gap 10 BUN 8 Creatinine 0.8 Creat Clearance w eGFR > 60 Random Glucose 85 Calcium 8.3 L Total Bilirubin 0.3 D AST 27 D ALT 32 D Alkaline Phosphatase 111 D Total Protein 8.3 H D Albumin 4.2 D 06/03/17 17:15 RBC 5.13 D MCV 96.5 H MCHC 33.9 RDW 12.9 MPV 7.3 L Neutrophils % 47.7 D Lymphocytes % 36.3 D Monocytes % 14.0 H Eosinophils % 0.9 D Basophils % 1.1 Medical Decision Making - Medical Decision Making 06/03/17 21:17 agree with care from JAGJIT Dumas *DC/Admit/Observation/Transfer Diagnosis at time of Disposition: Alcohol dependence - Discharge Dispostion Disposition: TRANSFER ACUTE CARE/OTHER HOSP Condition at time of disposition: Good - Referrals Referrals: Steven Cordoba MD [Primary Care Provider] - - Patient Instructions - Post Discharge Activity
== END 2017-06-03 21:15 | disposition short-term general hospital (02) ==
LOC: JER 16:27
DX: F10.20 Alcohol dependence, uncomplicated (principal); I10 Essential (primary) hypertension
CPT/HCPCS: 36415; 80053; 85025; 99282-25

== ENCOUNTER 2017-06-12 13:15 | Inpatient (IN) | payer OTHER ==
[2017-06-12 15:39] VITALS: BMI 28.8
--- NOTE | 2017-06-12 20:14 | HP ---
CIWA Score - CIWA Score Nausea/Vomitin Muscle Tremors: 4-Moderate,w/Arms Extend Anxiety: 5 Agitation: 5 Paroxysmal Sweats: 1-Minimal Palms Moist Orientation: 0-Oriented Tacttile Disturbances: 0-None Auditory Disturbances: 0-None Visual Disturbances: 0-None Headache: 0-None Present CIWA-Ar Total Score: 18 Admission ROS [facility] - HPI Chief Complaint: seeking detox for withdrawal sx's from alcohol Allergies/Adverse Reactions: Allergies Allergy/AdvReac Type Severity Reaction Status Date / Time No Known Allergies Allergy Verified 06/12/17 16:18 History of Present Illness: 41 Y.O. MALE WITH LONG HX/O ALCOHOLISM ADMITTED TO DETOX. CLIENT IS KNOWN TO [facility]. LAST HERE IN FEBRUARY WHERE HE COMPLETED REHAB. HE HAS SINCE RELAPSED. REPORTS LONGEST CLEAN TIME 13 MONTH. Exam Limitations: No Limitations - Ebola screening Have you traveled outside of the country in the last 21 days: No Have you had contact with anyone from an Ebola affected area: No Have you been sick,other than usual withdrawal symptoms: No - Review of Systems Constitutional: Chills, Loss of Appetite, Night Sweats, Changes in sleep EENT: reports: No Symptoms Reported Respiratory: reports: No Symptoms reported Cardiac: reports: No Symptoms Reported GI: reports: Diarrhea, Nausea, Poor Appetite, Poor Fluid Intake, Abdominal cramping : reports: No Symptoms Reported Musculoskeletal: reports: No Symptoms Reported Integumentary: reports: No Symptoms Reported Neuro: reports: Seizure (R/T ALCOHOL WITHDRAWAL) Endocrine: reports: No Symptoms Reported Hematology: reports: No Symptoms Reported Psychiatric: reports: Anxious, Depressed (DENIES SI/HI) Other Systems: Reviewed and Negative Patient History - Patient Medical History Hx Anemia: No Hx Asthma: No Hx Chronic Obstructive Pulmonary Disease (COPD): No Hx Cancer: No Hx Cardiac Disorders: No Hx Congestive Heart Failure: No Hx Hypertension: Yes (on meds.) Hx Hypercholesterolemia: No Hx Pacemaker: No HX Cerebrovascular Accident: No Hx Seizures: Yes (R/T ALCOHOL WITHDRAWAL) Hx Dementia: No Hx Diabetes: No Hx Gastrointestinal Disorders: No Hx Liver Disease: No Hx Genitourinary Disorders: No Hx Sexually Transmitted Disorders: No Hx Renal Disease (ESRD): No Hx Thyroid Disease: No Hx Human Immunodeficiency Virus (HIV): No Hx Hepatitis C: No Hx Depression: No Hx Suicide Attempt: No Hx Bipolar Disorder: No Hx Schizophrenia: No Other Medical History: ANXIETY - Patient Surgical History Past Surgical History: Yes Hx Neurologic Surgery: No Hx Cataract Extraction: No Hx Cardiac Surgery: No Hx Lung Surgery: No Hx Breast Surgery: No Hx Breast Biopsy: No Hx Abdominal Surgery: No Hx Appendectomy: Yes (at age 13) Hx Cholecystectomy: No Hx Genitourinary Surgery: No Hx Section: No Hx Orthopedic Surgery: No Anesthesia Reaction: No - PPD History Previous Implant?: Yes Documented Results: Negative w/proof Implanted On Prior [facility] Admission?: Yes Date: 03/27/16 Results: 0 mm PPD to be Administered?: Yes - Smoking Cessation Smoking history: Current every day smoker Have you smoked in the past 12 months: Yes Aproximately how many cigarettes per day: 20 Cigars Per Day: 0 Hx Chewing Tobacco Use: No Initiated information on smoking cessation: Yes 'Breaking Loose' booklet given: 06/12/17 - Substance & Tx. History Hx Alcohol Use: Yes Hx Substance Use: Yes Substance Use Type: Alcohol Hx Substance Use Treatment: Yes ([facility]) - Substances Abused Alcohol Route: Oral Frequency: Daily Amount used: 4-5 20 oz beers Age of first use: 19 Date of Last Use: 06/10/17 Family Disease History - Family Disease History Family Disease History: Other: Mother (dvt leg and pulmonary embolism) Admission Physical Exam S - Vital Signs Vital Signs: Vital Signs - 24 hr 06/12/17 15:38 Temperature 96.4 F L Pulse Rate 115 H Respiratory 20 Rate Blood Pressure 151/90 - Physical General Appearance: Yes: Appropriately Dressed, Mild Distress, Tremorous, Anxious HEENTM: Yes: EOMI, Normocephalic, Normal Voice, VICTOR HUGO, Pharynx Normal Respiratory: Yes: Chest Non-Tender, Lungs Clear, Normal Breath Sounds, No Respiratory Distress, No Accessory Muscle Use Neck: Yes: No masses,lesions,Nodules, Supple, Trachea in good position Breast: Yes: Breast Exam Deferred Cardiology: Yes: Regular Rhythm, Regular Rate, S1, S2 Abdominal: Yes: Normal Bowel Sounds, Non Tender, Soft, Protuberent Genitourinary: Yes: Within Normal Limits Back: Yes: Normal Inspection Musculoskeletal: Yes: full range of Motion, Gait Steady Extremities: Yes: Normal Capillary Refill, Normal Range of Motion, Non-Tender, Tremors Neurological: Yes: brand representative II-XII NML intact, Fully Oriented, Alert, Motor Strength 5/5 Integumentary: Yes: Other (HEALING ABRASION TO R FOREARM) Lymphatic: Yes: Within Normal Limits - Diagnostic (1) Alcohol dependence with uncomplicated withdrawal Current Visit: Yes Status: Chronic (2) HTN (hypertension) Current Visit: No Status: Chronic Qualifiers: Hypertension type: essential hypertension Qualified Code(s): I10 - Essential (primary) hypertension (3) Nicotine dependence Current Visit: No Status: Chronic Qualifiers: Nicotine product type: cigarettes Substance use status: uncomplicated Qualified Code(s): F17.210 - Nicotine dependence, cigarettes, uncomplicated Cleared for Admission [facility] - Detox or Rehab [facility] Level of Care: Medically Managed Detox Regimen/Protocol: Librium Claeared for Rehab Admission: No S Breath Alcohol Content Breath Alcohol Content: 0 Urine Drug Screen - Results Drug Screen Negative: Yes
[2017-06-12] MEDS ORDERED: IBUPROFEN 400 MG TABLET (FP) PO PRN (20:16)
[2017-06-12] MEDS ORDERED: guaiFENesin/D-METHORPHAN HB 10 ML UNIT-DOSE CUPS PO PRN (20:16)
[2017-06-12] MEDS ORDERED: MENTHOL/PHENOL 1 EACH UD MM PRN (20:16)
[2017-06-12] MEDS ORDERED: MAGNESIUM CITRATE 300 ML BOTTLE PO PRN (20:16)
[2017-06-12] MEDS ORDERED: MAG HYDROX/AL HYDROX/SIMETH 30 ML UNIT-DOSE CUP PO PRN (20:16)
[2017-06-12] MEDS ORDERED: ACETAMINOPHEN 325 MG TABLET (FP) PO PRN (20:16)
[2017-06-12] MEDS ORDERED: LOPERAMIDE HCL 2 MG CAPSULE PO PRN (20:16)
[2017-06-12] MEDS ORDERED: NICOTINE POLACRILEX 2 MG GUM BC PRN (20:16)
[2017-06-12] MEDS ORDERED: MAGNESIUM HYDROX 2400MG/30ML ORAL SUSPENSION 30 ML CUP PO PRN (20:16)
[2017-06-12] MEDS ORDERED: chlordiazePOXIDE HCL 25 MG CAPSULE PO PRN (20:16)
[2017-06-12] MEDS ORDERED: P-EPHED 60MG/TRIPROLIDI 2.5MG TABLET PO PRN (20:16)
[2017-06-12] MEDS ORDERED: hydrOXYzine PAMOATE 50 MG CAPSULE (FP) PO PRN (20:16)
[2017-06-12] MEDS ORDERED: cloNIDine HCL 0.1 MG TABLET PO ONE (20:17)
[2017-06-12] MEDS: chlordiazePOXIDE HCL 25 MG CAPSULE PO SCH (22:12)
[2017-06-12] MEDS: THIAMINE HCL 100 MG TABLET (FP) PO SCH (22:13)
[2017-06-12 23:05] LABS: URINE APPEARANCE SLCLOUDY; URINE BILIRUBIN NEGATIVE (NEGATIVE); URINE BLOOD NEGATIVE (NEGATIVE); URINE COLOR AMBER; URINE GLUCOSE (UA) NEGATIVE (NEGATIVE); URINE KETONE TRACE (NEGATIVE); URINE LEUK ESTERASE NEGATIVE (NEGATIVE); URINE NITRITE NEGATIVE (NEGATIVE)
[2017-06-12 23:10] LABS: URINE PROTEIN 1+ (NEGATIVE)
[2017-06-12 23:12] LABS: EPI CELLS RARE /HPF (FEW); URINE BACTERIA RARE /hpf (NONE SEEN); URINE HYALINE CAST 24 /lpf; URINE MUCUS MANY
[2017-06-13] MEDS: chlordiazePOXIDE HCL 25 MG CAPSULE PO SCH ×4 (05:29→22:15)
[2017-06-13] MEDS: PRENATAL VITAMINS W/ FOLIC ACID TABLET (FP) PO SCH (10:16)
[2017-06-13] MEDS: amLODIPine BESYLATE 10 MG TABLET (FP) PO SCH (10:16)
[2017-06-13] MEDS: LOSARTAN POTASSIUM 50 MG TABLET (FP) PO SCH (10:16)
[2017-06-13] MEDS: NICOTINE 21 MG/24 HOURS TOPICAL PATCH TD SCH (10:16)
[2017-06-13 10:53] LABS: HEMATOCRIT 45.2 % (35.4-49); HEMOGLOBIN 14.9 GM/dL (11.7-16.9); MCH 32.4 pg (25.7-33.7); MCHC 33.1 g/dl (32.0-35.9); MEAN CELL VOLUME 97.9 fl (80-96); MEAN PLT VOLUME 8.1 fl (7.5-11.1); PLATELET COUNT 175 K/MM3 (134-434); RBC 4.62 M/mm3 (4.00-5.60); RDW 12.3 % (11.9-15.9); WHITE BLOOD COUNT 4.6 K/mm3 (4.0-10.0)
--- NOTE | 2017-06-13 11:11 | CONSULT ---
[facility] Psychiatric Consult - Data Date of interview: 06/13/17 Admission source: [facility] Identifying data: Readmission to [facility] for this 41 y/o male seeking detox treatment on for alcohol dependence.Patient is single without children,domiciled and currently employed. Substance Abuse History: Confirmed by patient in this interview.Daily consumption of beer.Smoking history: Current every day smoker. Have you smoked in the past 12 months: Yes. Aproximately how many cigarettes per day: 20. Cigars Per Day: 0. Hx Chewing Tobacco Use: No. Initiated information on smoking cessation: Yes. 'Breaking Loose' booklet given: 06/12/17. - Substance & Tx. History. Hx Alcohol Use: Yes. Hx Substance Use: Yes. Substance Use Type : Alcohol. Hx Substance Use Treatment: Yes ([facility]). - Substances Abused. Alcohol. Route: Oral. Frequency: Daily. Amount used: 4-5 20 oz beers. Age of first use: 19. Date of Last Use: 06/10/17 Medical History: History of withdrawal-related seizures,hypertension and appendectonmy (age 13). Psychiatric History: Patient denies. Physical/Sexual Abuse/Trauma History: Patient denies. Additional Comment: Drug Screen is negative. Mental Status Exam - Mental Status Exam Alert and Oriented to: Time, Place, Person Cognitive Function: Good Patient Appearance: Well Groomed Mood: Nervous, Withdrawn, Hopeful Affect: Mood Congruent Patient Behavior: Fatigued, Appropriate, Cooperative Speech Pattern: Clear, Appropriate Voice Loudness: Normal Thought Process: Intact, Goal Oriented Thought Disorder: Not Present Hallucinations: Denies Suicidal Ideation: Denies Homicidal Ideation: Denies Insight/Judgement: Poor Sleep: Poorly, Difficulty falling asleep Appetite: Good Muscle strength/Tone: Normal Gait/Station: Normal Psychiatric Findings - Problem List ([place] 1, 2,3) (1) Alcohol dependence with uncomplicated withdrawal Current Visit: Yes Status: Acute (2) Nicotine dependence Current Visit: Yes Status: Chronic Qualifiers: Nicotine product type: cigarettes Substance use status: uncomplicated Qualified Code(s): F17.210 - Nicotine dependence, cigarettes, uncomplicated (3) Insomnia Current Visit: Yes Status: Acute - Initial Treatment Plan Initial Treatment Plan: Psychoeducation and support are provided in this session.Previous records revisited.Sleep hygiene discussed.Detoxification in progress.Ambien 10 mg po hs prn.Ordered on patient's consent.Mr Ordonez is informed of potential for parasomnias (sleep-walking).Daily monitoring of clinical course.
[2017-06-13 11:12] LABS: ALBUMIN 3.5 g/dl (3.4-5.0); ALK PHOS 90 U/L (45-117); ANION GAP 7 (8-16); BILIRUBIN,TOTAL 0.5 mg/dL (0.2-1.0); BLOOD UREA NITROGEN 13 mg/dL (7-18); CALCIUM 8.4 mg/dL (8.5-10.1); CHLORIDE 104 mmol/L (98-107); CO2 28 mmol/L (21-32); CREATININE 0.7 mg/dL (0.7-1.3); GLUCOSE,RANDOM 94 mg/dL (74-106); POTASSIUM 3.5 mmol/L (3.5-5.1); SGOT/AST 19 U/L (15-37); SGPT/ALT 29 U/L (12-78); SODIUM 139 mmol/L (136-145); TOT PROT 6.7 g/dl (6.4-8.2)
--- NOTE | 2017-06-13 14:54 | PN ---
S CIWA - CIWA Score Nausea/Vomitin Muscle Tremors: 4-Moderate,w/Arms Extend Anxiety: 3 Agitation: 3 Paroxysmal Sweats: No Perspiration Orientation: 0-Oriented Tacttile Disturbances: 3-Moderate Itch/Numb/Burn Auditory Disturbances: 0-None Visual Disturbances: 2-Mild Sensitivity Headache: 0-None Present CIWA-Ar Total Score: 18 [facility] Progress Note (SOAP) Subjective: Nausea, Diarrhea, Stomach Cramping, Tremors. Objective: PT. A & O X 3, OBSERVED AMBULATING ON UNIT. NO ACUTE DISTRESS. 06/13/17 14:52 Vital Signs Temperature 96.0 F L 06/13/17 13:21 Pulse Rate 94 H 06/13/17 13:21 Respiratory Rate 18 06/13/17 13:21 Blood Pressure 117/76 06/13/17 13:21 O2 Sat by Pulse Oximetry (%) Laboratory Tests 06/12/17 06/13/17 06/13/17 22:30 07:50 07:50 WBC 4.6 RBC 4.62 Hgb 14.9 D Hct 45.2 MCV 97.9 H MCH 32.4 MCHC 33.1 RDW 12.3 Plt Count 175 D MPV 8.1 D Sodium 139 Potassium 3.5 D Chloride 104 Carbon Dioxide 28 Anion Gap 7 L BUN 13 D Creatinine 0.7 Creat Clearance w eGFR > 60 Random Glucose 94 Calcium 8.4 L Total Bilirubin 0.5 D AST 19 D ALT 29 Alkaline Phosphatase 90 Total Protein 6.7 Albumin 3.5 Urine Color [place] Urine Appearance Slcloudy Urine pH 6.0 Ur Specific [place] 1.024 Urine Protein 1+ H Urine Glucose (UA) Negative Urine Ketones Trace H Urine Blood Negative Urine Nitrite Negative Urine Bilirubin Negative Urine Urobilinogen 2.0 Ur Leukocyte Esterase Negative Urine WBC (Auto) 4 Urine RBC (Auto) 1 Ur Epithelial Cells Rare Urine Bacteria Rare Hyaline Casts 24 Urine Mucus Many RPR Titer 06/13/17 07:50 WBC RBC Hgb Hct MCV MCH MCHC RDW Plt Count MPV Sodium Potassium Chloride Carbon Dioxide Anion Gap BUN Creatinine Creat Clearance w eGFR Random Glucose Calcium Total Bilirubin AST ALT Alkaline Phosphatase Total Protein Albumin Urine Color Urine Appearance Urine pH Ur Specific [place] Urine Protein Urine Glucose (UA) Urine Ketones Urine Blood Urine Nitrite Urine Bilirubin Urine Urobilinogen Ur Leukocyte Esterase Urine WBC (Auto) Urine RBC (Auto) Ur Epithelial Cells Urine Bacteria Hyaline Casts Urine Mucus RPR Titer Nonreactive LABS NOTED. HCV AB RESULT PENDING. 06/13/17 14:53 Assessment: 06/13/17 14:52 WITHDRAWAL SYMPTOMS. Plan: CONTINUE DETOX. INCREASE DAILY PO FLUID INTAKE. PRN IMMODIUM FOR DIARRHEA.
[2017-06-13] MEDS: THIAMINE HCL 100 MG TABLET (FP) PO SCH (22:15)
[2017-06-13] MEDS: ZOLPIDEM TARTRATE 5 MG TABLET PO PRN (22:15)
[2017-06-14] MEDS: chlordiazePOXIDE HCL 25 MG CAPSULE PO SCH ×3 (05:12→18:19)
[2017-06-14] MEDS: LOSARTAN POTASSIUM 50 MG TABLET (FP) PO SCH (10:13)
[2017-06-14] MEDS: PRENATAL VITAMINS W/ FOLIC ACID TABLET (FP) PO SCH (10:13)
[2017-06-14] MEDS: NICOTINE 21 MG/24 HOURS TOPICAL PATCH TD SCH (10:13)
[2017-06-14] MEDS: amLODIPine BESYLATE 10 MG TABLET (FP) PO SCH (10:13)
--- NOTE | 2017-06-14 13:20 | EKG ---
Test Reason : Blood Pressure : / mmHG Vent. Rate : 078 BPM Atrial Rate : 078 BPM P-R Int : 148 ms QRS Dur : 094 ms QT Int : 372 ms P-R-T Axes : 049 042 034 degrees QTc Int : 424 ms NORMAL SINUS RHYTHM NORMAL ECG WHEN COMPARED WITH ECG OF 04-FEB-2017 22:03, NO SIGNIFICANT CHANGE WAS FOUND Confirmed by REMBERTO SAMUEL MD ([id number]) on 06/14/2017 1:20:12 PM Referred By: Confirmed By:REMBERTO SAMUEL MD
--- NOTE | 2017-06-14 13:54 | PN ---
[facility] CIWA - CIWA Score Nausea/Vomitin-No Nausea/No Vomiting Muscle Tremors: 2 Anxiety: 4-Mod. Anxious/Guarded Agitation: 0-Normal Activity Paroxysmal Sweats: 3 Orientation: 0-Oriented Tacttile Disturbances: 2-Mild Itch/Numbness/Burn Auditory Disturbances: 2-Mild Harshness/Frighten Visual Disturbances: 2-Mild Sensitivity Headache: 0-None Present CIWA-Ar Total Score: 15 [facility] Progress Note (SOAP) Subjective: Sweating, Constipation, Interrupted Sleep, Fatigue. Objective: PT A & O X 3, OBSERVED AMBULATING ON UNIT. NO ACUTE DISTRESS. 06/14/17 13:53 Vital Signs Temperature 98.6 F 06/14/17 09:41 Pulse Rate 90 06/14/17 09:41 Respiratory Rate 20 06/14/17 09:41 Blood Pressure 127/85 06/14/17 09:41 O2 Sat by Pulse Oximetry (%) Laboratory Tests 06/12/17 06/13/17 06/13/17 22:30 07:50 07:50 WBC 4.6 RBC 4.62 Hgb 14.9 D Hct 45.2 MCV 97.9 H MCH 32.4 MCHC 33.1 RDW 12.3 Plt Count 175 D MPV 8.1 D Sodium Potassium Chloride Carbon Dioxide Anion Gap BUN Creatinine Creat Clearance w eGFR Random Glucose Calcium Total Bilirubin AST ALT Alkaline Phosphatase Total Protein Albumin Urine Color [place] Urine Appearance Slcloudy Urine pH 6.0 Ur Specific [place] 1.024 Urine Protein 1+ H Urine Glucose (UA) Negative Urine Ketones Trace H Urine Blood Negative Urine Nitrite Negative Urine Bilirubin Negative Urine Urobilinogen 2.0 Ur Leukocyte Esterase Negative Urine WBC (Auto) 4 Urine RBC (Auto) 1 Ur Epithelial Cells Rare Urine Bacteria Rare Hyaline Casts 24 Urine Mucus Many RPR Titer Hepatitis C Antibody 0.1 06/13/17 06/13/17 07:50 07:50 WBC RBC Hgb Hct MCV MCH MCHC RDW Plt Count MPV Sodium 139 Potassium 3.5 D Chloride 104 Carbon Dioxide 28 Anion Gap 7 L BUN 13 D Creatinine 0.7 Creat Clearance w eGFR > 60 Random Glucose 94 Calcium 8.4 L Total Bilirubin 0.5 D AST 19 D ALT 29 Alkaline Phosphatase 90 Total Protein 6.7 Albumin 3.5 Urine Color Urine Appearance Urine pH Ur Specific [place] Urine Protein Urine Glucose (UA) Urine Ketones Urine Blood Urine Nitrite Urine Bilirubin Urine Urobilinogen Ur Leukocyte Esterase Urine WBC (Auto) Urine RBC (Auto) Ur Epithelial Cells Urine Bacteria Hyaline Casts Urine Mucus RPR Titer Nonreactive Hepatitis C Antibody LABS NOTED. Assessment: 06/14/17 13:53 WITHDRAWAL SYMPTOMS. Plan: CONTINUE DETOX. INCREASE DAILY PO FLUID INTAKE.
[2017-06-14] MEDS: chlordiazePOXIDE 5 MG CAPSULE PO SCH (22:06)
[2017-06-14] MEDS: THIAMINE HCL 100 MG TABLET (FP) PO SCH (22:06)
[2017-06-14] MEDS: ZOLPIDEM TARTRATE 5 MG TABLET PO PRN (22:09)
[2017-06-15] MEDS: chlordiazePOXIDE 5 MG CAPSULE PO SCH ×3 (05:09→17:09)
[2017-06-15] MEDS: amLODIPine BESYLATE 10 MG TABLET (FP) PO SCH (10:21)
[2017-06-15] MEDS: PRENATAL VITAMINS W/ FOLIC ACID TABLET (FP) PO SCH (10:21)
[2017-06-15] MEDS: LOSARTAN POTASSIUM 50 MG TABLET (FP) PO SCH (10:21)
[2017-06-15] MEDS: NICOTINE 21 MG/24 HOURS TOPICAL PATCH TD SCH (10:22)
--- NOTE | 2017-06-15 12:04 | PN ---
[facility] Progress Note (SOAP) Subjective: shakes sweats No distress Objective: 06/15/17 12:03 No acute distress noted Vital Signs Temperature 97 F L 06/15/17 09:12 Pulse Rate 81 06/15/17 09:12 Respiratory Rate 20 06/15/17 09:12 Blood Pressure 132/86 06/15/17 09:12 O2 Sat by Pulse Oximetry (%) Assessment: 06/15/17 12:04 withdrawal sx Plan: continue detox
[2017-06-15] MEDS: THIAMINE HCL 100 MG TABLET (FP) PO SCH (22:07)
[2017-06-15] MEDS: ZOLPIDEM TARTRATE 5 MG TABLET PO PRN (22:07)
[2017-06-15] MEDS: chlordiazePOXIDE HCL 10 MG CAPSULE PO SCH (22:07)
[2017-06-16] MEDS: chlordiazePOXIDE HCL 10 MG CAPSULE PO SCH (05:57)
[2017-06-16 09:05] VITALS: BP 137/92; PULSE 100; TEMP 97
[2017-06-16] MEDS: LOSARTAN POTASSIUM 50 MG TABLET (FP) PO SCH (09:21)
[2017-06-16] MEDS: amLODIPine BESYLATE 10 MG TABLET (FP) PO SCH (09:21)
[2017-06-16] MEDS: NICOTINE 21 MG/24 HOURS TOPICAL PATCH TD SCH (09:21)
[2017-06-16] MEDS: PRENATAL VITAMINS W/ FOLIC ACID TABLET (FP) PO SCH (09:21)
--- NOTE | 2017-06-16 13:47 | DS ---
[facility] Detox Discharge Summary Admission Date: 06/12/17 Discharge Date: 06/16/17 - History Present History: Alcohol Dependence Additional Comments: NO BEDS AVAILABLE AT [facility] AT THIS TIME. PATIENT WILL RETURN HOME TODAY, THEN WILL CONTACT [facility] AD[facility] TOMOR[facility] AM TO APPLY FOR ADMISSION TO [facility] AT THAT TIME. PATIENT WAS DISCHARGED FROM DETOX UNIT IN STABLE MEDICAL CONDITION. Pertinent Past History: HTN, History of Seizures (due to Withdrawal), Insomnia, Anxiety. - Physical Exam Results Vital Signs: Vital Signs Temperature 97.0 F L 06/16/17 09:05 Pulse Rate 100 H 06/16/17 09:05 Respiratory Rate 20 06/16/17 09:05 Blood Pressure 137/92 06/16/17 09:05 O2 Sat by Pulse Oximetry (%) Pertinent Admission Physical Exam Findings: WITHDRAWAL SYMPTOMS. Laboratory Tests 06/12/17 06/13/17 06/13/17 22:30 07:50 07:50 WBC 4.6 RBC 4.62 Hgb 14.9 D Hct 45.2 MCV 97.9 H MCH 32.4 MCHC 33.1 RDW 12.3 Plt Count 175 D MPV 8.1 D Sodium Potassium Chloride Carbon Dioxide Anion Gap BUN Creatinine Creat Clearance w eGFR Random Glucose Calcium Total Bilirubin AST ALT Alkaline Phosphatase Total Protein Albumin Urine Color [place] Urine Appearance Slcloudy Urine pH 6.0 Ur Specific [place] 1.024 Urine Protein 1+ H Urine Glucose (UA) Negative Urine Ketones Trace H Urine Blood Negative Urine Nitrite Negative Urine Bilirubin Negative Urine Urobilinogen 2.0 Ur Leukocyte Esterase Negative Urine WBC (Auto) 4 Urine RBC (Auto) 1 Ur Epithelial Cells Rare Urine Bacteria Rare Hyaline Casts 24 Urine Mucus Many RPR Titer Hepatitis C Antibody 0.1 06/13/17 06/13/17 07:50 07:50 WBC RBC Hgb Hct MCV MCH MCHC RDW Plt Count MPV Sodium 139 Potassium 3.5 D Chloride 104 Carbon Dioxide 28 Anion Gap 7 L BUN 13 D Creatinine 0.7 Creat Clearance w eGFR > 60 Random Glucose 94 Calcium 8.4 L Total Bilirubin 0.5 D AST 19 D ALT 29 Alkaline Phosphatase 90 Total Protein 6.7 Albumin 3.5 Urine Color Urine Appearance Urine pH Ur Specific [place] Urine Protein Urine Glucose (UA) Urine Ketones Urine Blood Urine Nitrite Urine Bilirubin Urine Urobilinogen Ur Leukocyte Esterase Urine WBC (Auto) Urine RBC (Auto) Ur Epithelial Cells Urine Bacteria Hyaline Casts Urine Mucus RPR Titer Nonreactive Hepatitis C Antibody LABS NOTED. - Treatment Hospital Course: Detox Protocol Followed, Detoxed Safely, Responded well, Discharged Condition Good, Rehab Referral Accepted Patient has Accepted a Rehab Referral to: [facility] ([facility] . - Medication Discharge Medications: Ambulatory Orders Amlodipine Besylate [Norvasc -] 10 mg PO DAILY #30 tab 02/17/17 Losartan Potassium [Cozaar -] 100 mg PO DAILY #30 tab 02/17/17 - Diagnosis (1) Alcohol dependence with uncomplicated withdrawal Status: Acute (2) Nicotine dependence Status: Chronic Qualifiers: Nicotine product type: cigarettes Substance use status: uncomplicated Qualified Code(s): F17.210 - Nicotine dependence, cigarettes, uncomplicated (3) HTN (hypertension) Status: Chronic Qualifiers: Hypertension type: essential hypertension Qualified Code(s): I10 - Essential (primary) hypertension (4) Insomnia Status: Acute Qualifiers: Insomnia type: unspecified Qualified Code(s): G47.00 - Insomnia, unspecified - AMA Did Patient Leave Against Medical Advice: No
== END 2017-06-16 09:36 | disposition home or self-care (01) | DRG 775 ==
LOC: YASAS 13:15 → Y3N 17:55
PROVIDERS: ADMIT Internal Medicine; ATTEND Internal Medicine
PROC: HZ2ZZZZ Detoxification Services for Substance Abuse Treatment (ICD-10-PCS; principal; 2017-06-12)
DX: F10.230 Alcohol dependence with withdrawal, uncomplicated (principal); F17.210 Nicotine dependence, cigarettes, uncomplicated; I10 Essential (primary) hypertension; G47.00 Insomnia, unspecified; Z86.69 Personal history of other diseases of the nervous system and sense organs
CPT/HCPCS: 36415; 80053; 81003; 81015; 85027; 86593; 86803; 93005; 93010; J0735

== ENCOUNTER 2018-05-12 16:55 | Inpatient (IN) | payer OTHER ==
[2018-05-12 18:13] VITALS: BMI 34.4
--- NOTE | 2018-05-12 23:27 | HP ---
CIWA Score Nausea/Vomitin-Mild Nausea/No Vomiting Muscle Tremors: 7-Severe,w/o Arm Extended Anxiety: 4-Mod. Anxious/Guarded Agitation: 4-Moderately Restless Paroxysmal Sweats: No Perspiration Orientation: 0-Oriented Tacttile Disturbances: 0-None Auditory Disturbances: 0-None Visual Disturbances: 0-None Headache: 2-Mild CIWA-Ar Total Score: 18 - Admission Criteria [facility]ASAS Guidelines: Admission for Medically Managed Detox: Requires at least one of the followin. CIWA greater than 12 2. Seizures within the past 24 hours 3. Delirium tremens within the past 24 hours 4. Hallucinations within the past 24 hours 5. Acute intervention needed for co occurring medical disorder 6. Acute intervention needed for co occurring psychiatric disorder 7. Severe withdrawal that cannot be handled at a lower level of care (continued vomiting, continued diarrhea, abnormal vital signs) requiring intravenous medication and/or fluids 8. Patient presents the following: CIWA greater than 12, Acute intervention needed for co-occurring med or psych disorder Admission Criteria Met: Admission criteria met Admission ROS [facility] Chief Complaint: C/O WORSENING WITHDRAWAL SX'S FROM ALCOHOL. SEEKING DETOX ASSIST Allergies/Adverse Reactions: Allergies Allergy/AdvReac Type Severity Reaction Status Date / Time No Known Allergies Allergy Verified 06/12/17 16:18 History of Present Illness: 42 Y.O. MALE WITH LONG HX/O ALCOHOLISM HERE FOR DETOX. CLIENT IS KNOWN TO US. LAST HERE 06/2017. HE IS REFERRED BY [facility] OUT PATIENT SERVICES. REPORTS LAST DETOX 3 MONTHS AGO AT [facility]. PRESENTS TODAY WITH C/O WITHDRAWAL SX'S; CIWA 18. REPORTS LONGEST CLEAN TIME 1 YEAR. DENIES ANY RECENT CLEAN TIME. REPORTS HX/O SEIZURES WHEN WITHDRAWING. LAST EPISODE ALMOST A YEAR NOW. DENIES DT'S, AVH, SI/HI. LIVES WITH FAMILY, EMPLOYED, DENIES LEGALS. PMHX- HTN, PSYCH- ANXIETY, Exam Limitations: No Limitations - Ebola screening Have you traveled outside of the country in the last 21 days: No Have you had contact with anyone from an Ebola affected area: No Have you been sick,other than usual withdrawal symptoms: No Do you have a fever: No - Review of Systems Constitutional: Changes in sleep EENT: reports: Recent change in vision (RX GLASSES) Respiratory: reports: No Symptoms reported Cardiac: reports: No Symptoms Reported GI: reports: Nausea, Poor Appetite, Poor Fluid Intake : reports: No Symptoms Reported Musculoskeletal: reports: No Symptoms Reported Integumentary: reports: No Symptoms Reported Neuro: reports: Seizure (R/T ETOH WITHDRAWAL) Endocrine: reports: No Symptoms Reported Hematology: reports: No Symptoms Reported Psychiatric: reports: Anxious, Depressed Other Systems: Reviewed and Negative Patient History - Patient Medical History Hx Anemia: No Hx Asthma: No Hx Chronic Obstructive Pulmonary Disease (COPD): No Hx Cancer: No Hx Cardiac Disorders: No Hx Congestive Heart Failure: No Hx Hypertension: Yes (LOSAARTAN, AMLODIPINE) Hx Hypercholesterolemia: No Hx Pacemaker: No HX Cerebrovascular Accident: No Hx Seizures: Yes (R/T ALCOHOL WITHDRAWAL) Hx Dementia: No Hx Diabetes: No Hx Gastrointestinal Disorders: No Hx Liver Disease: No Hx Genitourinary Disorders: No Hx Sexually Transmitted Disorders: No Hx Renal Disease (ESRD): No Hx Thyroid Disease: No Hx Human Immunodeficiency Virus (HIV): No Hx Hepatitis C: No Hx Depression: Yes Hx Suicide Attempt: No Hx Bipolar Disorder: No Hx Schizophrenia: No Other Medical History: ANXIETY - Patient Surgical History Past Surgical History: Yes Hx Neurologic Surgery: No Hx Cataract Extraction: No Hx Cardiac Surgery: No Hx Lung Surgery: No Hx Breast Surgery: No Hx Breast Biopsy: No Hx Abdominal Surgery: No Hx Appendectomy: Yes (at age 13) Hx Cholecystectomy: No Hx Genitourinary Surgery: No Hx Section: No Hx Orthopedic Surgery: No Anesthesia Reaction: No - PPD History Previous Implant?: Yes Documented Results: Negative w/proof Implanted On Prior [facility] Admission?: Yes Date: 03/27/16 Results: 0 mm PPD to be Administered?: Yes - Smoking Cessation Smoking history: Current every day smoker Have you smoked in the past 12 months: Yes Aproximately how many cigarettes per day: 20 Cigars Per Day: 0 Hx Chewing Tobacco Use: No Initiated information on smoking cessation: Yes 'Breaking Loose' booklet given: 05/12/18 - Substance & Tx. History Hx Alcohol Use: Yes Hx Substance Use: Yes Substance Use Type: Alcohol, Marijuana Hx Substance Use Treatment: Yes ([facility]) - Substances Abused Alcohol Route: Oral Frequency: Daily Amount used: beer- 1 case Age of first use: 18 Date of Last Use: 05/12/18 Family Disease History - Family Disease History Family Disease History: Other: Mother (dvt leg and pulmonary embolism) Admission Physical Exam [facility] - Vital Signs Vital Signs: Vital Signs - 24 hr 05/12/18 18:07 Temperature 98.7 F Pulse Rate 105 H Respiratory 18 Rate Blood Pressure 150/106 H - Physical General Appearance: Yes: Appropriately Dressed, Moderate Distress, Alcohol on Breath, Tremorous, Anxious, Other (FLUSHED) HEENTM: Yes: EOMI, Normocephalic, Normal Voice, VICTOR HUGO, Pharynx Normal, Other ( NASAL BRIDGE ABRASION) Respiratory: Yes: Chest Non-Tender, Lungs Clear, Normal Breath Sounds, No Respiratory Distress, No Accessory Muscle Use Neck: Yes: No masses,lesions,Nodules, Supple, Trachea in good position Breast: Yes: Breast Exam Deferred Cardiology: Yes: Regular Rhythm, S1, S2, Tachycardia Abdominal: Yes: Normal Bowel Sounds, Non Tender, Flat, Soft, Protuberent Genitourinary: Yes: Within Normal Limits Back: Yes: Normal Inspection Musculoskeletal: Yes: full range of Motion, Gait Steady Extremities: Yes: Normal Range of Motion, Non-Tender, Tremors, Other (BLE PITTING EDEMA) Neurological: Yes: Fully Oriented, Alert, Motor Strength 5/5, Depressed Affect Integumentary: Yes: Dry, Warm, Pitting Edema (BLE) Lymphatic: Yes: Within Normal Limits - Diagnostic (1) Edema, lower extremity Current Visit: Yes Status: Acute (2) Abrasion, nose without infection Current Visit: Yes Status: Acute (3) Alcohol dependence with uncomplicated withdrawal Current Visit: Yes Status: Acute (4) Insomnia Current Visit: Yes Status: Chronic Qualifiers: Insomnia type: drug-induced Qualified Code(s): F19.982 - Other psychoactive substance use, unspecified with psychoactive substance-induced sleep disorder (5) HTN (hypertension) Current Visit: Yes Status: Chronic Qualifiers: Hypertension type: essential hypertension Qualified Code(s): I10 - Essential (primary) hypertension (6) Nicotine dependence Current Visit: Yes Status: Chronic Qualifiers: Nicotine product type: cigarettes Substance use status: uncomplicated Qualified Code(s): F17.210 - Nicotine dependence, cigarettes, uncomplicated Cleared for Admission [facility] - Detox or Rehab [facility] Level of Care: Medically Managed Detox Regimen/Protocol: Librium Claeared for Rehab Admission: No [facility] Breath Alcohol Content Breath Alcohol Content: 0.150 Urine Drug Screen - Results Drug Screen Negative: No Urine Drug Screen Results: THC-Marijuana
[2018-05-12] MEDS ORDERED: MAG HYDROX/AL HYDROX/SIMETH 30 ML UNIT-DOSE CUP PO PRN (23:31)
[2018-05-12] MEDS ORDERED: NICOTINE POLACRILEX 2 MG GUM BC PRN (23:31)
[2018-05-12] MEDS ORDERED: MAGNESIUM HYDROX 2400MG/30ML ORAL SUSPENSION 30 ML CUP PO PRN (23:31)
[2018-05-12] MEDS ORDERED: hydrOXYzine PAMOATE 50 MG CAPSULE (FP) PO PRN (23:31)
[2018-05-12] MEDS ORDERED: LOPERAMIDE HCL 2 MG CAPSULE PO PRN (23:31)
[2018-05-12] MEDS ORDERED: MENTHOL/PHENOL 1 EACH UD MM PRN (23:31)
[2018-05-12] MEDS ORDERED: chlordiazePOXIDE HCL 25 MG CAPSULE PO PRN (23:31)
[2018-05-12] MEDS ORDERED: IBUPROFEN 400 MG TABLET (FP) PO PRN (23:31)
[2018-05-12] MEDS ORDERED: ACETAMINOPHEN 325 MG TABLET (FP) PO PRN (23:31)
[2018-05-12] MEDS ORDERED: P-EPHED 60MG/TRIPROLIDI 2.5MG TABLET PO PRN (23:31)
[2018-05-12] MEDS ORDERED: MAGNESIUM CITRATE 300 ML BOTTLE PO PRN (23:31)
[2018-05-12] MEDS ORDERED: guaiFENesin/D-METHORPHAN HB 10 ML UNIT-DOSE CUPS PO PRN (23:31)
[2018-05-12] MEDS ORDERED: cloNIDine HCL 0.1 MG TABLET PO ONE (23:44)
[2018-05-13] MEDS: chlordiazePOXIDE HCL 25 MG CAPSULE PO SCH ×5 (00:28→22:20)
[2018-05-13] MEDS: MELATONIN 5 MG TABLETS PO PRN ×2 (00:30→22:20)
[2018-05-13 10:20] LABS: ALBUMIN 3.5 g/dl (3.4-5.0); ALK PHOS 88 U/L (45-117); ANION GAP 7 MMOL/L (8-16); BILIRUBIN,TOTAL 0.3 mg/dL (0.2-1); BLOOD UREA NITROGEN 9 mg/dL (7-18); CALCIUM 8.2 mg/dL (8.5-10.1); CHLORIDE 106 mmol/L (98-107); CO2 26 mmol/L (21-32); CREATININE 0.9 mg/dL (0.55-1.3); GLUCOSE,RANDOM 72 mg/dL (74-106); POTASSIUM 4.1 mmol/L (3.5-5.1); SGOT/AST 30 U/L (15-37); SGPT/ALT 27 U/L (13-61); SODIUM 140 mmol/L (136-145); TOT PROT 6.5 g/dl (6.4-8.2)
[2018-05-13 10:22] LABS: HEMATOCRIT 44.4 % (35.4-49); HEMOGLOBIN 14.6 GM/dL (11.7-16.9); MCH 31.7 pg (25.7-33.7); MCHC 32.8 g/dl (32.0-35.9); MEAN CELL VOLUME 96.7 fl (80-96); MEAN PLT VOLUME 7.9 fl (7.5-11.1); PLATELET COUNT 171 K/MM3 (134-434); RBC 4.59 M/mm3 (4.00-5.60); RDW 12.9 % (11.9-15.9); WHITE BLOOD COUNT 4.8 K/mm3 (4.0-10.0)
[2018-05-13] MEDS: BACITRACIN 0.9 GM PACKET TP SCH (10:34)
[2018-05-13] MEDS: LOSARTAN POTASSIUM 50 MG TABLET (FP) PO SCH (10:34)
[2018-05-13] MEDS: amLODIPine BESYLATE 10 MG TABLET (FP) PO SCH (10:35)
[2018-05-13] MEDS: NICOTINE 21 MG/24 HOURS TOPICAL PATCH TD SCH (10:35)
[2018-05-13] MEDS: PRENATAL VITAMINS W/ FOLIC ACID TABLET (FP) PO SCH (10:35)
[2018-05-13 16:03] LABS: URINE APPEARANCE CLEAR; URINE BILIRUBIN NEGATIVE (<2.0 mg/dL); URINE COLOR LTYELLOW; URINE GLUCOSE (UA) NEGATIVE (NEGATIVE); URINE KETONE NEGATIVE (NEGATIVE); URINE LEUK ESTERASE NEGATIVE (NEGATIVE); URINE NITRITE NEGATIVE (NEGATIVE); URINE PROTEIN NEGATIVE (NEGATIVE); URINE UROBILINOGEN NEGATIVE mg/dL (0.2-1.0)
[2018-05-13 16:21] LABS: EPI CELLS RARE /HPF (FEW)
--- NOTE | 2018-05-13 17:11 | PN ---
S CIWA - CIWA Score Nausea/Vomitin-No Nausea/No Vomiting Muscle Tremors: 4-Moderate,w/Arms Extend Anxiety: 2 Agitation: 1-Slight > Activity Paroxysmal Sweats: No Perspiration Orientation: 0-Oriented Tacttile Disturbances: 3-Moderate Itch/Numb/Burn Auditory Disturbances: 0-None Visual Disturbances: 2-Mild Sensitivity Headache: 0-None Present CIWA-Ar Total Score: 12 [facility] Progress Note (SOAP) Subjective: Fatigue, Tremors, Interrupted Sleep. Objective: PATIENT A & O X 3. IN NO ACUTE DISTRESS. 05/13/18 17:10 Vital Signs Temperature 96.6 F L 05/13/18 16:59 Pulse Rate 89 05/13/18 17:00 Respiratory Rate 20 05/13/18 17:00 Blood Pressure 165/107 H 05/13/18 17:00 O2 Sat by Pulse Oximetry (%) Laboratory Tests 05/13/18 05/13/18 05/13/18 07:00 07:00 07:00 WBC 4.8 RBC 4.59 Hgb 14.6 Hct 44.4 MCV 96.7 H MCH 31.7 MCHC 32.8 RDW 12.9 Plt Count 171 MPV 7.9 Sodium 140 Potassium 4.1 Chloride 106 Carbon Dioxide 26 Anion Gap 7 L BUN 9 Creatinine 0.9 Creat Clearance w eGFR > 60 Random Glucose 72 L Calcium 8.2 L Total Bilirubin 0.3 AST 30 ALT 27 Alkaline Phosphatase 88 Total Protein 6.5 Albumin 3.5 Urine Color Urine Appearance Urine pH Ur Specific [place] Urine Protein Urine Glucose (UA) Urine Ketones Urine Blood Urine Nitrite Urine Bilirubin Urine Urobilinogen Ur Leukocyte Esterase Urine WBC (Auto) Urine RBC (Auto) Ur Epithelial Cells RPR Titer Nonreactive 05/13/18 11:00 WBC RBC Hgb Hct MCV MCH MCHC RDW Plt Count MPV Sodium Potassium Chloride Carbon Dioxide Anion Gap BUN Creatinine Creat Clearance w eGFR Random Glucose Calcium Total Bilirubin AST ALT Alkaline Phosphatase Total Protein Albumin Urine Color Ltyellow Urine Appearance Clear Urine pH 7.0 Ur Specific [place] 1.009 L Urine Protein Negative Urine Glucose (UA) Negative Urine Ketones Negative Urine Blood 1+ H Urine Nitrite Negative Urine Bilirubin Negative Urine Urobilinogen Negative Ur Leukocyte Esterase Negative Urine WBC (Auto) 1 Urine RBC (Auto) <1 Ur Epithelial Cells Rare RPR Titer LABS NOTED. Assessment: 05/13/18 17:10 WITHDRAWAL SYMPTOMS. Plan: CONTINUE DETOX. CONTINUE TO MONITOR BP.
[2018-05-13] MEDS ORDERED: METOPROLOL TARTRATE 25 MG TABLET (FP) PO ONE (17:45)
--- NOTE | 2018-05-13 18:11 | CONSULT ---
[facility] Psychiatric Consult - Data Date of interview: 05/13/17 Admission source: [facility] Identifying data: Patient is a 42 year old single male without children, domiciled, and employed parts sales representative at [employer]. This is patient's first admission to detox. Patien admitted to for alcohol dependence. Substance Abuse History: Smoking Cessation. Smoking history: Current every day smoker. Have you smoked in the past 12 months: Yes. Aproximately how many cigarettes per day: 20. Cigars Per Day: 0. Hx Chewing Tobacco Use: No. Initiated information on smoking cessation: Yes. 'Breaking Loose' booklet given : 05/12/18. - Substance & Tx. History. Hx Alcohol Use: Yes. Hx Substance Use : Yes. Substance Use Type: Alcohol, Marijuana. Hx Substance Use Treatment: Yes ( [facility]). - Substances Abused. Alcohol. Route: Oral. Frequency: Daily. Amount used: beer- 1 case. Age of first use: 18. Date of Last Use: 06/29 Medical History: hypertension, seizures related to alcohol withdrawal. Psychiatric History: Patient denies h/o psychiatric hospitalization, outpatient care, and suicide attempt. At present he reports depressed mood and is experiencing difficulty sleeping. Physical/Sexual Abuse/Trauma History: denies. Mental Status Exam - Mental Status Exam Alert and Oriented to: Time, Place, Person Cognitive Function: Good Patient Appearance: Well Groomed Mood: Sad Affect: Mood Congruent Patient Behavior: Appropriate, Cooperative Speech Pattern: Clear, Appropriate Voice Loudness: Normal Thought Process: Intact, Goal Oriented Thought Disorder: Not Present Hallucinations: Denies Suicidal Ideation: Denies Homicidal Ideation: Denies Insight/Judgement: Poor Sleep: Poorly Appetite: Fair Muscle strength/Tone: Normal Gait/Station: Normal Psychiatric Findings - Problem List ([place] 1, 2,3) (1) Alcohol-induced mood disorder Current Visit: Yes Status: Acute (2) Alcohol dependence with uncomplicated withdrawal Current Visit: Yes Status: Acute (3) Insomnia Current Visit: Yes Status: Acute Qualifiers: Insomnia type: drug-induced Qualified Code(s): F19.982 - Other psychoactive substance use, unspecified with psychoactive substance-induced sleep disorder - Initial Treatment Plan Initial Treatment Plan: Psychoeducation provided. Detoxification in progress. Will order Mirtzapine 7.5mg. Benefits and side effects discussed. Verbal consent given.
[2018-05-13] MEDS: MIRTAZAPINE 15 MG TABLET (FP) PO SCH (22:20)
[2018-05-13] MEDS: THIAMINE HCL 100 MG TABLET (FP) PO SCH (22:20)
[2018-05-14] MEDS: chlordiazePOXIDE HCL 25 MG CAPSULE PO SCH ×3 (05:16→17:32)
[2018-05-14] MEDS: amLODIPine BESYLATE 10 MG TABLET (FP) PO SCH (10:35)
[2018-05-14] MEDS: PRENATAL VITAMINS W/ FOLIC ACID TABLET (FP) PO SCH (10:35)
[2018-05-14] MEDS: NICOTINE 21 MG/24 HOURS TOPICAL PATCH TD SCH (10:35)
[2018-05-14] MEDS: LOSARTAN POTASSIUM 50 MG TABLET (FP) PO SCH (10:35)
[2018-05-14] MEDS: BACITRACIN 0.9 GM PACKET TP SCH (10:35)
--- NOTE | 2018-05-14 18:27 | PN ---
[facility] CIWA - CIWA Score Nausea/Vomitin-No Nausea/No Vomiting Muscle Tremors: None Anxiety: 3 Agitation: 1-Slight > Activity Paroxysmal Sweats: No Perspiration Orientation: 2-Disoriented Date<2 days Tacttile Disturbances: 1-Very Mild Itch/Numbness Auditory Disturbances: 2-Mild Harshness/Frighten Visual Disturbances: 2-Mild Sensitivity Headache: 0-None Present CIWA-Ar Total Score: 11 [facility] Progress Note (SOAP) Subjective: Stomach Cramping, Diarrhea. Objective: PATIENT A & O X 2 (UNCERTAIN ABOUT CURRENT DAY / DATE). PATIENT OBSERVED AMBULATING ON UNIT. IN NO ACUTE DISTRESS. Vital Signs Temperature 97.1 F L 05/14/18 15:51 Pulse Rate 89 05/14/18 15:51 Respiratory Rate 18 05/14/18 15:51 Blood Pressure 146/89 05/14/18 15:51 O2 Sat by Pulse Oximetry (%) Laboratory Tests 05/13/18 05/13/18 05/13/18 07:00 07:00 07:00 WBC 4.8 RBC 4.59 Hgb 14.6 Hct 44.4 MCV 96.7 H MCH 31.7 MCHC 32.8 RDW 12.9 Plt Count 171 MPV 7.9 Sodium 140 Potassium 4.1 Chloride 106 Carbon Dioxide 26 Anion Gap 7 L BUN 9 Creatinine 0.9 Creat Clearance w eGFR > 60 Random Glucose 72 L Calcium 8.2 L Total Bilirubin 0.3 AST 30 ALT 27 Alkaline Phosphatase 88 Total Protein 6.5 Albumin 3.5 Urine Color Urine Appearance Urine pH Ur Specific [place] Urine Protein Urine Glucose (UA) Urine Ketones Urine Blood Urine Nitrite Urine Bilirubin Urine Urobilinogen Ur Leukocyte Esterase Urine WBC (Auto) Urine RBC (Auto) Ur Epithelial Cells RPR Titer Nonreactive 05/13/18 11:00 WBC RBC Hgb Hct MCV MCH MCHC RDW Plt Count MPV Sodium Potassium Chloride Carbon Dioxide Anion Gap BUN Creatinine Creat Clearance w eGFR Random Glucose Calcium Total Bilirubin AST ALT Alkaline Phosphatase Total Protein Albumin Urine Color Ltyellow Urine Appearance Clear Urine pH 7.0 Ur Specific [place] 1.009 L Urine Protein Negative Urine Glucose (UA) Negative Urine Ketones Negative Urine Blood 1+ H Urine Nitrite Negative Urine Bilirubin Negative Urine Urobilinogen Negative Ur Leukocyte Esterase Negative Urine WBC (Auto) 1 Urine RBC (Auto) <1 Ur Epithelial Cells Rare RPR Titer LABS NOTED. 01/04/19 18:25 Assessment: 05/14/18 18:26 WITHDRAWAL SYMPTOMS. Plan: CONTINUE DETOX. INCREASE DAILY PO FLUID INTAKE. PRN IMMODIUM FOR DIARRHEA.
[2018-05-14] MEDS: chlordiazePOXIDE 5 MG CAPSULE PO SCH (22:47)
[2018-05-14] MEDS: THIAMINE HCL 100 MG TABLET (FP) PO SCH (22:47)
[2018-05-14] MEDS: MIRTAZAPINE 15 MG TABLET (FP) PO SCH (22:47)
[2018-05-15] MEDS: chlordiazePOXIDE 5 MG CAPSULE PO SCH ×3 (05:57→18:02)
--- NOTE | 2018-05-15 10:15 | PN ---
[facility] Progress Note (SOAP) Subjective: Pt without complaints today- says med controlling withdrawal Sx O: Vital Signs - 24 hr 05/14/18 05/14/18 05/14/18 15:51 18:38 23:49 Temperature 97.1 F L 97.9 F 98.2 F Pulse Rate 89 104 H 99 H Respiratory 18 20 16 Rate Blood Pressure 146/89 154/108 H 149/113 H 05/15/18 05/15/18 05/15/18 00:30 03:30 07:06 Temperature 97.8 F Pulse Rate 76 Respiratory 18 18 18 Rate Blood Pressure 157/92 Laboratory Tests 05/13/18 05/13/18 05/13/18 07:00 07:00 07:00 WBC 4.8 RBC 4.59 Hgb 14.6 Hct 44.4 MCV 96.7 H MCH 31.7 MCHC 32.8 RDW 12.9 Plt Count 171 MPV 7.9 Sodium 140 Potassium 4.1 Chloride 106 Carbon Dioxide 26 Anion Gap 7 L BUN 9 Creatinine 0.9 Creat Clearance w eGFR > 60 Random Glucose 72 L Calcium 8.2 L Total Bilirubin 0.3 AST 30 ALT 27 Alkaline Phosphatase 88 Total Protein 6.5 Albumin 3.5 Urine Color Urine Appearance Urine pH Ur Specific [place] Urine Protein Urine Glucose (UA) Urine Ketones Urine Blood Urine Nitrite Urine Bilirubin Urine Urobilinogen Ur Leukocyte Esterase Urine WBC (Auto) Urine RBC (Auto) Ur Epithelial Cells RPR Titer Nonreactive 05/13/18 11:00 WBC RBC Hgb Hct MCV MCH MCHC RDW Plt Count MPV Sodium Potassium Chloride Carbon Dioxide Anion Gap BUN Creatinine Creat Clearance w eGFR Random Glucose Calcium Total Bilirubin AST ALT Alkaline Phosphatase Total Protein Albumin Urine Color Ltyellow Urine Appearance Clear Urine pH 7.0 Ur Specific [place] 1.009 L Urine Protein Negative Urine Glucose (UA) Negative Urine Ketones Negative Urine Blood 1+ H Urine Nitrite Negative Urine Bilirubin Negative Urine Urobilinogen Negative Ur Leukocyte Esterase Negative Urine WBC (Auto) 1 Urine RBC (Auto) <1 Ur Epithelial Cells Rare RPR Titer increased BP- has BP meds decreased Calcium will supplement continue alcohol detox protocol
[2018-05-15] MEDS: BACITRACIN 0.9 GM PACKET TP SCH (10:28)
[2018-05-15] MEDS: PRENATAL VITAMINS W/ FOLIC ACID TABLET (FP) PO SCH (10:28)
[2018-05-15] MEDS: amLODIPine BESYLATE 10 MG TABLET (FP) PO SCH (10:28)
[2018-05-15] MEDS: LOSARTAN POTASSIUM 50 MG TABLET (FP) PO SCH (10:29)
[2018-05-15] MEDS: NICOTINE 21 MG/24 HOURS TOPICAL PATCH TD SCH (10:31)
[2018-05-15] MEDS: MIRTAZAPINE 15 MG TABLET (FP) PO SCH (22:13)
[2018-05-15] MEDS: chlordiazePOXIDE HCL 10 MG CAPSULE PO SCH (22:13)
[2018-05-15] MEDS: THIAMINE HCL 100 MG TABLET (FP) PO SCH (22:13)
[2018-05-15] MEDS: MELATONIN 5 MG TABLETS PO PRN (22:14)
[2018-05-15] MEDS: CALCIUM CARBONATE 650 MG TABLET PO SCH (23:15)
[2018-05-16] MEDS: chlordiazePOXIDE HCL 10 MG CAPSULE PO SCH ×2 (05:27→10:24)
--- NOTE | 2018-05-16 09:11 | DS ---
[facility] Detox Discharge Summary Admission Date: 05/12/18 Discharge Date: 05/16/18 - History Present History: Alcohol Dependence Additional Comments: 42 years old male admitted on 05/12/18 for alcohol withdrawal stabilization completed deox regimen tolerated well alert no acute distres aftercare [facility] - Physical Exam Results Vital Signs: Vital Signs Temperature 97.5 F L 05/16/18 07:38 Pulse Rate 70 05/16/18 07:38 Respiratory Rate 18 05/16/18 07:38 Blood Pressure 120/83 05/16/18 07:38 O2 Sat by Pulse Oximetry (%) Pertinent Admission Physical Exam Findings: alcohol withdrawal sx Laboratory Last Values WBC 4.8 K/mm3 (4.0-10.0) 05/13/18 07:00 RBC 4.59 M/mm3 (4.00-5.60) 05/13/18 07:00 Hgb 14.6 GM/dL (11.7-16.9) 05/13/18 07:00 Hct 44.4 % (35.4-49) 05/13/18 07:00 MCV 96.7 fl (80-96) H 05/13/18 07:00 MCH 31.7 pg (25.7-33.7) 05/13/18 07:00 MCHC 32.8 g/dl (32.0-35.9) 05/13/18 07:00 RDW 12.9 % (11.9-15.9) 05/13/18 07:00 Plt Count 171 K/MM3 (134-434) 05/13/18 07:00 MPV 7.9 fl (7.5-11.1) 05/13/18 07:00 Sodium 140 mmol/L (136-145) 05/13/18 07:00 Potassium 4.1 mmol/L (3.5-5.1) 05/13/18 07:00 Chloride 106 mmol/L (98-107) 05/13/18 07:00 Carbon Dioxide 26 mmol/L (21-32) 05/13/18 07:00 Anion Gap 7 MMOL/L (8-16) L 05/13/18 07:00 BUN 9 mg/dL (7-18) 05/13/18 07:00 Creatinine 0.9 mg/dL (0.55-1.3) 05/13/18 07:00 Creat Clearance w eGFR > 60 (>60) 05/13/18 07:00 Random Glucose 72 mg/dL (74-106) L 05/13/18 07:00 Calcium 8.2 mg/dL (8.5-10.1) L 05/13/18 07:00 Total Bilirubin 0.3 mg/dL (0.2-1) 05/13/18 07:00 AST 30 U/L (15-37) 05/13/18 07:00 ALT 27 U/L (13-61) 05/13/18 07:00 Alkaline Phosphatase 88 U/L (45-117) 05/13/18 07:00 Total Protein 6.5 g/dl (6.4-8.2) 05/13/18 07:00 Albumin 3.5 g/dl (3.4-5.0) 05/13/18 07:00 Urine Color Ltyellow 05/13/18 11:00 Urine Appearance Clear 05/13/18 11:00 Urine pH 7.0 (5.0-8.0) 05/13/18 11:00 Ur Specific [place] 1.009 (1.010-1.035) L 05/13/18 11:00 Urine Protein Negative (NEGATIVE) 05/13/18 11:00 Urine Glucose (UA) Negative (NEGATIVE) 05/13/18 11:00 Urine Ketones Negative (NEGATIVE) 05/13/18 11:00 Urine Blood 1+ (NEGATIVE) H 05/13/18 11:00 Urine Nitrite Negative (NEGATIVE) 05/13/18 11:00 Urine Bilirubin Negative (<2.0 mg/dL) 05/13/18 11:00 Urine Urobilinogen Negative mg/dL (0.2-1.0) 05/13/18 11:00 Ur Leukocyte Esterase Negative (NEGATIVE) 05/13/18 11:00 Urine WBC (Auto) 1 /hpf (3-5) 05/13/18 11:00 Urine RBC (Auto) <1 /hpf (0-3) 05/13/18 11:00 Ur Epithelial Cells Rare /HPF (FEW) 05/13/18 11:00 RPR Titer Nonreactive (NONREACTIVE) 05/13/18 07:00 lab noted - Treatment Hospital Course: Detox Protocol Followed, Detoxed Safely, Responded well, Discharged Condition Good, Rehab Referral Accepted Patient has Accepted a Rehab Referral to: [facility] - Medication Discharge Medications: Ambulatory Orders Amlodipine Besylate [Norvasc -] 10 mg PO DAILY #30 tab 05/16/18 Losartan Potassium [Cozaar -] 100 mg PO DAILY #30 tab 05/16/18 - Diagnosis (1) HTN (hypertension) Status: Chronic Qualifiers: Hypertension type: essential hypertension Qualified Code(s): I10 - Essential (primary) hypertension (2) Nicotine dependence Status: Acute Qualifiers: Nicotine product type: cigarettes Substance use status: uncomplicated Qualified Code(s): F17.210 - Nicotine dependence, cigarettes, uncomplicated (3) Alcohol dependence with uncomplicated withdrawal Status: Acute (4) Edema, lower extremity Status: Chronic - AMA Did Patient Leave Against Medical Advice: No
[2018-05-16 10:01] VITALS: BP 138/89; PULSE 99; TEMP 97.3
[2018-05-16] MEDS: PRENATAL VITAMINS W/ FOLIC ACID TABLET (FP) PO SCH (10:23)
[2018-05-16] MEDS: LOSARTAN POTASSIUM 50 MG TABLET (FP) PO SCH (10:23)
[2018-05-16] MEDS: amLODIPine BESYLATE 10 MG TABLET (FP) PO SCH (10:23)
[2018-05-16] MEDS: CALCIUM CARBONATE 650 MG TABLET PO SCH (10:23)
[2018-05-16] MEDS: NICOTINE 21 MG/24 HOURS TOPICAL PATCH TD SCH (10:24)
[2018-05-16] MEDS: BACITRACIN 0.9 GM PACKET TP SCH (10:24)
== END 2018-05-16 10:26 | disposition home or self-care (01) | DRG 775 ==
LOC: YASAS 16:55 → Y6N 23:13
PROC: HZ2ZZZZ Detoxification Services for Substance Abuse Treatment (ICD-10-PCS; principal; 2018-05-12)
DX: F10.230 Alcohol dependence with withdrawal, uncomplicated (principal); F17.213 Nicotine dependence, cigarettes, with withdrawal; F10.24 Alcohol dependence with alcohol-induced mood disorder; F19.282 Other psychoactive substance dependence with psychoactive substance-induced sleep disorder; F41.9 Anxiety disorder, unspecified; I10 Essential (primary) hypertension; R60.0 Localized edema
CPT/HCPCS: 36415; 80053; 81003; 81015; 85027; 86593; J0735